=== PATIENT | female | born 1950 | race Caucasian/White ===

== ENCOUNTER → 2019-04-13 | Outpatient (CLI) | payer MEDICARE, SELFPAY ==
--- NOTE | 2019-04-13 07:57 | CT_ITS ---
STUDY: LOW DOSE CT LUNG CANCER SCREENING REASON FOR EXAM: Female, 68 years old. Tobacco use, smokes 1 pack/day x 50 years, SOB on exertion, 225lbs, diabetes. RADIATION DOSAGE (If Supplied By Facility): CTDIvol = ( 3.40 ) mGy, DLP = ( 108.06 ) mGycm TECHNIQUE: No contrast was administered. Low dose technique was utilized (average mAS-38 and kVp 120). 1.25 mm axial source images with a slice interval of 1.25-mm were reconstructed in lung windows. 2.5 mm axial source images with a slice interval of 2.5-mm were reconstructed in lung windows. 5.0 mm axial source images with a slice interval of 5.0-mm were reconstructed in soft tissue windows. Nodule measured using lung windows on PACS and/or independent workstation with automated measurement of minimum and maximum diameter. Nodule measurement reported as average diameter rounded to the nearest whole number. Growth is defined as an increase ins size of greater than 1.5 mm. COMPARISON: None. NODULES: No suspicious nodule is seen. Emphysema: Mild emphysematous changes. Aorta: Mild atherosclerotic calcific plaques. Coronary arteries: Coronary artery calcification. Other chest and abdominal findings: Degenerative changes of the thoracic vertebrae. CT/Low Dose CT Lung Screening IMPRESSION: Lung-RADS category 2 - Continue annual screening with LDCT in 12 months. IMPORTANT NOTES FOR USE: ACR Lung-RADS Version 1.0 Assessment Categories Release Date: June 27, 2013 Category: Coded 0-4 bases on nodule(s) with highest degree of suspicion. Negative screen is defined as categories 1 and 2; a positive screen is defined as categories 3 and 4. Category 3 and 4A nodules that are unchanged on interval CT should be coded as category 2, and individuals returned to screening in 12 months. Category 4X: Category 3 or 4 nodules with additional imaging findings that increase the suspicion of lung cancer, such as spiculation, GGN that doubles in size in 1 year, enlarged lymph notes, etc. Category Modifiers: S (significant finding unrelated to lung cancer) and C (prior history of treated lung cancer) may be added to the 0-4 Lung-RADS Electronically Signed: Jose Brewer, at 11:05 EST , Service support ,
--- NOTE | 2019-04-13 08:16 | BD_ITS ---
STUDY: DUAL ENERGY X-RAY ABSORPTIOMETRY / DXA REASON FOR EXAM: Female, 68 years old. 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 COMPARISON: None. FINDINGS: Lumbar Spine (L1-L4): g/cm2 (0.934) / T-score (-2.2) / Z-score (-0.6) Findings are suggestive of osteopenia with a high fracture risk. Left Femur Total: g/cm2 (0.771) / T-score (-1.9) / Z-score (-0.5) Left Femoral Neck: g/cm2 (0.723) / T-score (-2.3) / Z-score (-0.6) Right Femur Total: g/cm2 (0.810) / T-score (-1.6) / Z-score (-0.2) Right Femoral Neck: g/cm2 (0.736) / T-score (-2.2) / Z-score (-0.5) BD/Dexa Bone Density Study IMPRESSION: The patient is considered osteopenic as outlined below according to World [place] Organization (WHO) criteria with a high fracture risk. Reference Information: The T-score is the number of standard deviations above or below the standard which is normal for young adults at their peak bone mineral density. The World Health Organization (WHO) interprets the T-scores as follows: Above -1 Normal bone density Between -1 and -2.5 Osteopenia Equal to / or below -2.5 Osteoporosis As a practical clinical guideline, osteopenia may be graded as follows: Mild -1 through -1.5 Moderate -1.6 through -2.0 Severe -2.1 through -2.4 The Z-score is the number of standard deviations above or below age-matched controls. A Z-score of less than -1.5 would be considered abnormal. References: 1. NIH Osteoporosis and Related Bone Diseases http://www.osteo.org 2. International Society for Clinical Densitometry http://www.iscd.org 3. National Osteoporosis Foundation http://www.nof.org Electronically Signed: Jose Brewer, at 14:50 EST , Service support ,
== END | disposition home or self-care (01) ==
LOC: CT 06:53
PROVIDERS: PCP Family Medicine; Referring Provider Family Medicine; Visit Provider Family Medicine
DX: F17.200 Nicotine dependence, unspecified, uncomplicated (principal); Z12.2 Encounter for screening for malignant neoplasm of respiratory organs; Z78.0 Asymptomatic menopausal state
CPT/HCPCS: 77080; G0297

== ENCOUNTER → 2020-04-23 14:36 | Outpatient (CLI) | payer MEDICARE, SELFPAY ==
--- NOTE | 2020-04-23 14:38 | CT_ITS ---
STUDY: LOW DOSE CT LUNG CANCER SCREENING REASON FOR EXAM: Female, 69 years old. Lung cancer screening, smokes 1 pack/day x 49 years, emphysema, diabetes. Prior cysts removed from bilateral breasts. RADIATION DOSAGE (If Supplied By Facility): CTDIvol = ( 4.02 ) mGy, DLP = ( 127.37 ) mGycm TECHNIQUE: No contrast was administered. Low dose technique was utilized (average mAS-38 and kVp 120). 1.25 mm axial source images with a slice interval of 1.25-mm were reconstructed in lung windows. 2.5 mm axial source images with a slice interval of 2.5-mm were reconstructed in lung windows. 5.0 mm axial source images with a slice interval of 5.0-mm were reconstructed in soft tissue windows. Nodule measured using lung windows on PACS and/or independent workstation with automated measurement of minimum and maximum diameter. Nodule measurement reported as average diameter rounded to the nearest whole number. Growth is defined as an increase ins size of greater than 1.5 mm. COMPARISON: Comparison is made with prior examination dated 04/13/2019. NODULES: No suspicious nodules are seen. Emphysema: Mild emphysematous changes. Endobronchial lesion: None Aorta: Mild atherosclerotic plaques of the aortic arch. Coronary arteries: Coronary artery calcification. Heart: Unremarkable. Pulmonary artery: Unremarkable. Mediastinal nodes: Unremarkable. Other chest and abdominal findings: Mild degree of degenerative changes of the thoracic spine. CT/Low Dose CT Lung Screening IMPRESSION: Lung-RADS category 2 - Continue annual screening with LDCT in 12 months. IMPORTANT NOTES FOR USE: ACR Lung-RADS Version 1.0 Assessment Categories Release Date: June 27, 2013 Category: Coded 0-4 bases on nodule(s) with highest degree of suspicion. Negative screen is defined as categories 1 and 2; a positive screen is defined as categories 3 and 4. Category 3 and 4A nodules that are unchanged on interval CT should be coded as category 2, and individuals returned to screening in 12 months. Category 4X: Category 3 or 4 nodules with additional imaging findings that increase the suspicion of lung cancer, such as spiculation, GGN that doubles in size in 1 year, enlarged lymph notes, etc. Category Modifiers: S (significant finding unrelated to lung cancer) and C (prior history of treated lung cancer) may be added to the 0-4 Lung-RADS Electronically Signed: Jose Brewer MD at 15:08 EST , Service support ,
== END ==
PROVIDERS: PCP Family Medicine; Referring Provider Family Medicine; Visit Provider Family Medicine
DX: Z00.01 Encounter for general adult medical examination with abnormal findings (principal); F17.210 Nicotine dependence, cigarettes, uncomplicated; Z12.2 Encounter for screening for malignant neoplasm of respiratory organs
CPT/HCPCS: 71271

== ENCOUNTER 2021-05-01 08:54 | Outpatient (CLI) | payer MEDICARE, SELFPAY ==
--- NOTE | 2021-05-01 09:10 | CT_ITS ---
STUDY: LOW DOSE CT LUNG CANCER SCREENING REASON FOR EXAM: Female, 70 years old. SCREENING. Patient smoked 1 pack per day for 50 years. RADIATION DOSAGE (If Supplied By Facility): CTDIvol = ( 4.02 ) mGy, DLP = ( 122.85 ) mGycm TECHNIQUE: No contrast was administered. Low dose technique was utilized (average mAS-38 and kVp 120). 1.25 mm axial source images with a slice interval of 1.25-mm were reconstructed in lung windows. 2.5 mm axial source images with a slice interval of 2.5-mm were reconstructed in lung windows. 5.0 mm axial source images with a slice interval of 5.0-mm were reconstructed in soft tissue windows. Nodule measured using lung windows on PACS and/or independent workstation with automated measurement of minimum and maximum diameter. Nodule measurement reported as average diameter rounded to the nearest whole number. Growth is defined as an increase ins size of greater than 1.5 mm. COMPARISON: Comparison is made with prior study dated 04/23/2020. NODULES: No suspicious nodule is seen. Emphysema: Mild emphysematous changes. Endobronchial lesion: Aorta: Mild atherosclerotic plaque of the aortic arch. Coronary arteries: Coronary artery calcification. Heart: Unremarkable Pulmonary artery: Unremarkable Mediastinal nodes: Unremarkable Other chest and abdominal findings: Degenerative changes of the thoracic spine. CT/Low Dose CT Lung Screening IMPRESSION: Lung-RADS category 2 - Continue annual screening with LDCT in 12 months. IMPORTANT NOTES FOR USE: ACR Lung-RADS Version 1.1 Assessment Categories Release Date: 2018 Category: Coded 0-4 bases on nodule(s) with highest degree of suspicion. Negative screen is defined as categories 1 and 2; a positive screen is defined as categories 3 and 4. Category 3 and 4A nodules that are unchanged on interval CT should be coded as category 2, and individuals returned to screening in 12 months. Category 4X: Category 3 or 4 nodules with additional imaging findings that increase the suspicion of lung cancer, such as spiculation, GGN that doubles in size in 1 year, enlarged lymph notes, etc. Category Modifiers: S (significant finding unrelated to lung cancer) Electronically Signed: Jose Brewer MD at 12:22 EST ,
== END 2021-05-01 23:59 | disposition home or self-care (01) ==
PROVIDERS: PCP Family Medicine; Referring Provider Family Medicine; Visit Provider Family Medicine
DX: Z00.01 Encounter for general adult medical examination with abnormal findings (principal); Z12.2 Encounter for screening for malignant neoplasm of respiratory organs; Z87.891 Personal history of nicotine dependence
CPT/HCPCS: 71271

== ENCOUNTER → 2022-04-01 | Outpatient (CLI) | payer MEDICARE, SELFPAY ==
[2022-04-01 15:35] LABS: Absolute Lymphocyte Count 2.41 X10^3/uL (0.83-4.51); Absolute Neutrophil Count 4.9 X10^3/uL (2.0-7.7); Basophil# 0.08 X10^3/uL; Eosinophil# 0.29 X10^3/uL; Eosinophils% 3.5 % (0-5); Hematocrit 38.5 % (37-47); Hemoglobin 11.8 g/dL (12.0-15.0); Lymphocyte # 2.41 X10^3/ul (0.83-4.51); Lymphocyte % 28.7 % (19-41); Mean Corp Hgb Conc 30.6 g/dL (32-36); Mean Corpuscular Hgb 28.4 pg (27.0-32.0); Mean Corpuscular Volume 92.5 fL (81-99); Mean Platelet Vol. 9.7 fl (6.2-12.0); Monocyte% 8.3 % (0-10); NRBC Flagged by Analyzer 0 % (0-5); Neutrophil # 4.89 X10^3/uL (2.7-7.7); Neutrophil % 58.1 % (47-70); Platelet Count 389 K/mm3 (150-450); RBC Distribution Width CV 17.2 % (11.6-14.6); RBC Distribution Width SD 58.6 fl (35.1-43.9); Red Blood Count 4.16 M/mm3 (4.2-5.4); White Blood Count 8.4 K/mm3 (4.4-11.0)
[2022-04-01 16:55] LABS: ALB/GLOB Ratio 0.8 RATIO (0.9-2.4); AST(SGOT) 14 U/L (15-37); Alanine Aminotransfer ALT/SGPT 22 U/L (13-56); Albumin, Serum 3.3 g/dL (3.2-5.0); Alkaline Phosphatase 121 U/L (45-117); Anion Gap 12 (5-15); BUN 12 mg/dL (7-18); BUN/Creat Ratio 18.8 RATIO (10-20); Calcium,Total 9.1 mg/dL (8.5-10.1); Chloride 107 mmol/L (98-107); Creatinine, Serum 0.64 mg/dL (0.55-1.02); EST Glomerular Filtration Rate 97 mL/min (>60); Est Glom Filt Rate - Afr Amer 117 mL/min (>60); Ferritin 7 ng/mL (8-252); Globulin 3.9 g/dL (2.2-4.2); Glucose 141 mg/dL (74-106); Iron 40 ug/dL (50-170); Iron Binding Capacity,Total 380 ug/dL (250-450); PERCENT IRON SATURATION 10.5 % (15.0-55.0); Potassium 4.4 mmol/L (3.5-5.1); Protein, Total 7.2 g/dL (6.4-8.2); Sodium Level 142 mmol/L (136-145); Thyroid Stim Hormone (TSH) 1.58 uIU/mL (0.358-3.74)
[2022-04-01 17:00] LABS: Vitamin B12 458 pg/mL (211-911); Vitamin D,25 Hydroxy 67.4 ng/mL
== END | disposition home or self-care (01) ==
LOC: BFHLAB 11:22
PROVIDERS: PCP Family Medicine; Visit Provider Family Medicine
DX: E11.9 Type 2 diabetes mellitus without complications (principal); I63.9 Cerebral infarction, unspecified; D64.9 Anemia, unspecified; E78.5 Hyperlipidemia, unspecified; R23.2 Flushing; E55.9 Vitamin D deficiency, unspecified
CPT/HCPCS: 36415; 80053; 82306; 82607; 82627; 82728; 82746; 83540; 83550; 84443; 85025; 82626

== ENCOUNTER → 2022-04-25 | Outpatient (CLI) | payer MEDICARE, SELFPAY ==
[2022-04-25 15:16] LABS: Erythrocyte Sedimentation Rate 16 mm/hr (0-30)
[2022-04-25 15:18] LABS: Absolute Lymphocyte Count 2.42 X10^3/uL (0.83-4.51); Absolute Neutrophil Count 5.8 X10^3/uL (2.0-7.7); Basophil% 1.1 % (0-1); Eosinophil# 0.18 X10^3/uL; Hematocrit 43.1 % (37-47); Hemoglobin 13.1 g/dL (12.0-15.0); Lymphocyte # 2.42 X10^3/ul (0.83-4.51); Lymphocyte % 26.6 % (19-41); Mean Corp Hgb Conc 30.4 g/dL (32-36); Mean Corpuscular Hgb 28.2 pg (27.0-32.0); Mean Corpuscular Volume 92.9 fL (81-99); Mean Platelet Vol. 9.6 fl (6.2-12.0); Monocyte# 0.56 X10^3/uL; Monocyte% 6.2 % (0-10); NRBC Flagged by Analyzer 0 % (0-5); Neutrophil % 63.8 % (47-70); Platelet Count 422 K/mm3 (150-450); RBC Distribution Width CV 15.9 % (11.6-14.6); RBC Distribution Width SD 53.5 fl (35.1-43.9); Red Blood Count 4.64 M/mm3 (4.2-5.4); White Blood Count 9.1 K/mm3 (4.4-11.0)
[2022-04-25 15:36] LABS: ALB/GLOB Ratio 0.9 RATIO (0.9-2.4); AST(SGOT) 9 U/L (15-37); Alanine Aminotransfer ALT/SGPT 18 U/L (13-56); Albumin, Serum 3.6 g/dL (3.2-5.0); Alkaline Phosphatase 104 U/L (45-117); Anion Gap 8 (5-15); BUN 13 mg/dL (7-18); CRP < 2.90 mg/L (0.0-3.0); Calcium,Total 9.7 mg/dL (8.5-10.1); Chloride 107 mmol/L (98-107); Creatinine, Serum 0.69 mg/dL (0.55-1.02); EST Glomerular Filtration Rate 90 mL/min (>60); Est Glom Filt Rate - Afr Amer 108 mL/min (>60); Ferritin 7 ng/mL (8-252); Globulin 4.1 g/dL (2.2-4.2); Glucose 141 mg/dL (74-106); Iron Binding Capacity,Total 432 ug/dL (250-450); LDH 135 U/L (84-246); Potassium 4.1 mmol/L (3.5-5.1); Protein, Total 7.7 g/dL (6.4-8.2); Sodium Level 142 mmol/L (136-145)
[2022-04-28 13:07] LABS: Anti-Centromere B Ab <0.2 AI (0.0-0.9); Anti-Chromatin <0.2 AI (0.0-0.9); Anti-Jo <0.2 AI (0.0-0.9); Anti-Scleroderma-70 AB <0.2 AI (0.0-0.9); RNP Ab <0.2 AI (0.0-0.9); SJOGREN'S Anti-SS-A test < 0.2 AI (0.0-0.9); SJOGREN'S Anti-SS-B test < 0.2 AI (0.0-0.9); Smith Ab <0.2 AI (0.0-0.9)
[2022-04-28 13:18] LABS: Anti-dsDNA Ab 2 IU/mL (0-9)
[2022-04-28 16:08] LABS: Endomysial Antibody IgA Negative (Negative)
[2022-04-28 21:03] LABS: Immunoglobulin A 377 mg/dL (64-422); t-Transglutaminase IgA <2 U/mL (0-3)
[2022-05-02 00:06] LABS: Albumin 3.5 g/dL (2.9-4.4); Alpha-1-Globulins 0.3 g/dL (0.0-0.4); Gamma Globulin 0.7 g/dL (0.4-1.8); Immunoglobulin A 366 mg/dL (64-422); Immunoglobulin E 371 IU/mL (6-495); Immunoglobulin G 841 mg/dL (586-1602); Immunoglobulin M 29 mg/dL (26-217); PROEL- TOTAL PROTEIN 6.7 g/dL (6.0-8.5)
[2022-05-02 08:28] LABS: Perinuclear Ab (P-ANCA) <1:20 titer (Neg:<1:20)
== END | disposition home or self-care (01) ==
PROVIDERS: PCP Family Medicine; Referring Provider Nurse Practitioner Adult Health; Visit Provider Nurse Practitioner Adult Health
DX: K52.9 Noninfective gastroenteritis and colitis, unspecified (principal); D50.9 Iron deficiency anemia, unspecified
CPT/HCPCS: 36415; 80053; 82728; 82784; 82785; 83516; 83550; 83615; 84165; 85025; 85652; 86140; 86225; 86235; 86255; 86256; 86334

== ENCOUNTER → 2022-04-28 | Outpatient (CLI) | payer MEDICARE, SELFPAY ==
[2022-05-02 17:28] LABS: Pancreatic Elastase, Fecal 108 (>200)
[2022-05-03 10:59] LABS: Calprotectin, Stool 19 ug/g (0-120)
== END | disposition home or self-care (01) ==
LOC: LABSPEC 11:04
PROVIDERS: PCP Family Medicine; Referring Provider Nurse Practitioner Adult Health; Visit Provider Nurse Practitioner Adult Health
DX: K52.9 Noninfective gastroenteritis and colitis, unspecified (principal); D84.9 Immunodeficiency, unspecified; D50.9 Iron deficiency anemia, unspecified; K58.9 Irritable bowel syndrome, unspecified
CPT/HCPCS: 82653; 83630; 83993; 87493; 87506

== ENCOUNTER → 2022-05-16 | Outpatient (CLI) | payer MEDICARE, SELFPAY ==
--- NOTE | 2022-05-16 11:15 | CT_ITS ---
ACR Level 3 findings have been noted. An addendum which confirms receipt of the report will follow. STUDY: CT ABDOMEN AND PELVIS WITH CONTRAST REASON FOR EXAM: Female, 71 years old. Chronic diarrhea, FELI -- oral and iv RADIATION DOSAGE (If Supplied By Facility): CTDIvol = ( 18.37 ) mGy, DLP = ( 1161.16 ) mGycm TECHNIQUE: Transaxial images were obtained from the dome of the diaphragm to the symphysis pubis with oral contrast. Oral and amp; IV Gastrografin and amp; 100mL Isovue-300 was administered. Sagittal and coronal images were reconstructed. Individualized dose optimization techniques were used for this CT. COMPARISON: Limited comparison May 01, 2021 CT scan chest FINDINGS: The visualized lung bases are unremarkable. No visualize coronary calcifications. Normal liver. Normal gallbladder and extrahepatic biliary system. Normal spleen. Normal pancreas. Normal bilateral adrenal glands. Normal right kidney. Normal left kidney. There is a small hiatal hernia. There is a mildly thick-walled appearance of the duodenum. There is a distended appearance of the stomach with contrast and gastric fluid. There are contrast filled mildly distended loops of small bowel. There is contrast within the colon with air-fluid levels. There is diverticulosis of the colon. Within the descending colon over a segment of proximally 5 cm cm is visualized mild wall thickening and several prominent haustral markings which contain stool. One contains what appears to be residual contrast. There is no significant surrounding inflammatory change. The appendix is visualized and appears normal. There is partial calcification of the aorta. Normal inferior vena cava. Normal retroperitoneum. Normal urinary bladder. There is atrophy of the uterus. Normal abdominal wall. There is multilevel degenerative change. At L2-L3 there is disc space narrowing. There is a partially sclerotic degenerative appearance of the level of L3. At L3-L4 there is a right lateral disc osteophyte moderate neural foramina narrowing minimal central stenosis. At L4-L5 there is vacuum phenomenon and disc space narrowing and moderate neural foraminal narrowing minimal central stenosis. At L5-S1 there is minimal broad disc bulge. CT/Abdomen/Pelvis WITH Contrast IMPRESSION: Mostly fluid-filled, contrast-filled appearance of the colon with the exception of the distal descending colon sigmoid and rectum which contain moderate stool. There is a segment of approximate 5 cm of mild wall thickening of the proximal sigmoid colon which may represent a focus of atypia or possible mild colitis. This is associated with enlarged posterolateral markings. Recommend correlation with clinical symptoms and consideration for follow-up colonoscopy. There is a mildly thick-walled appearance of the duodenum on this study which could potentially represent mild duodenitis. Minimal hiatal hernia. Electronically Signed: Beatris Currie MD at 16:13 EDT ,
--- NOTE | 2022-05-16 11:16 | CT_ITS ---
STUDY: LOW DOSE CT LUNG CANCER SCREENING REASON FOR EXAM: Female, 71 years old. Long-term smoking history RADIATION DOSAGE (If Supplied By Facility): CTDIvol = ( 3.02 ) mGy, DLP = ( 101.18 ) mGycm TECHNIQUE: No contrast was administered. Low dose technique was utilized (average mAS-38 and kVp 120). 1.25 mm axial source images with a slice interval of 1.25-mm were reconstructed in lung windows. 2.5 mm axial source images with a slice interval of 2.5-mm were reconstructed in lung windows. 5.0 mm axial source images with a slice interval of 5.0-mm were reconstructed in soft tissue windows. COMPARISON: 05/01/2021 FINDINGS: Lung windows show underlying emphysema with chronic interstitial changes in both lung denton. There is evidence of chronic bronchitis. There is no organized infiltrate, effusion, or suspicious noncalcified mass or nodule Thyroid gland is unremarkable. No suspicious adenopathy. There are calcified coronary vessels. Bony structures show degenerative change. Limited cuts of the upper abdomen do not show suspicious abnormality. CT/Low Dose CT Lung Screening IMPRESSION: Lung-RADS category 2 - Continue annual screening with LDCT in 12 months. IMPORTANT NOTES FOR USE: ACR Lung-RADS Version 1.1 Assessment Categories Release Date: 2018 Category: Coded 0-4 bases on nodule(s) with highest degree of suspicion. Negative screen is defined as categories 1 and 2; a positive screen is defined as categories 3 and 4. Category 3 and 4A nodules that are unchanged on interval CT should be coded as category 2, and individuals returned to screening in 12 months. Category 4X: Category 3 or 4 nodules with additional imaging findings that increase the suspicion of lung cancer, such as spiculation, GGN that doubles in size in 1 year, enlarged lymph notes, etc. Category Modifiers: S (significant finding unrelated to lung cancer) Electronically Signed: Jovanny Blank MD at 14:17 EDT ,
== END | disposition home or self-care (01) ==
LOC: CT 11:07
PROVIDERS: PCP Family Medicine; Referring Provider Family Medicine; Visit Provider Family Medicine
DX: Z87.891 Personal history of nicotine dependence (principal); K52.9 Noninfective gastroenteritis and colitis, unspecified; D50.9 Iron deficiency anemia, unspecified
CPT/HCPCS: 71271; 74177; Q9967; A4216

== ENCOUNTER 2022-06-18 10:37 | Day surgery (SDC) | payer MEDICARE, SELFPAY ==
[2022-06-18] VITALS (7 sets, daily range): BP systolic 83–115; BP diastolic 54–69; PULSE 77–92; RESP 16–20; TEMP 36.4–36.9; O2SAT 91–99; BMI 36.8
--- NOTE | 2022-06-18 11:00 | HP.PCM_ITS ---
History and Physical Date of Admission: 06/18/22 71 F who presents to the office today to establish with GI for anemia and diarrhea Diagnosed with iron deficiency anemia in 2021. Hgb was 9.8 in 08/2021. Anemia improved with oral iron supplement however ferritin remains low, therefore she was referred to evaluate for GI bleed. Hgb 11.3 in 11/2021. Ferritin 7 and iron 31 in 08/2021. She is on aspirin and clopidogrel for hx CVA. She has urgent diarrhea postprandially, can be watery or loose or soft. Has a bad odor. Lots of gas. She can stop the diarrhea by eating cheese, then no BM for 3 days, then takes stool softener and has formed stool once, then back to having diarrhea. The diarrhea began maybe 2 yrs ago. She was already on met formin x yrs at that point. Avoids milk and ice cream since they will cause diarrhea. She does have nocturnal diarrhea. Estimates 6 bouts of diarrhea per day. Only one accident, waited too long to get to bathroom. Gets rectal pressure before BM. No tenesmus. No abdominal pain, no cramps or spasms. No melena or hematochezia. No nausea or vomiting. No early satiety. No heartburn or acid reflux. Occas feels like food sticks in her esophagus. She has diabetes, most recent hgb a1c was 6.9 in 11/2021. 04/2020 EGD and colonoscopy by general surgeon Dr Lee, diverticula. Pt reports remote hx of diverticulitis. Father of colon cancer age 72 ROS Const Constitutional: No fatigue ENT ENT: No difficulty swallowing Gastro GI: Positive for abdominal pain and diarrhea; No belching, bloating, change in bowel habits, change in stool character, coffee ground emesis, constipation, cramping, heartburn, difficulty swallowing, feeling full early, excessive flatus, incontinent of stools, Vomiting blood/hematemesis, Blood in stool, loose stools, Black,tarry stools, nausea/dyspepsia, pain with swallowing, vomiting or other Musc Musculoskeletal: No joint pain Skin Skin: No yellowing of the eye or itchy eyes Psych Psychiatric: No anxiety and No depression Endo Endocrine: No fatigue Aller/Imm Allergy/Immunologic: No itchy eyes Tom/Lymp Hematologic/Lymphatic: No easy bleeding or easy bruising Exam Const General: cooperative and comfortable Nutritional Appearance: obese Orientation: alert, awake and oriented x3 HENMT Head: normal to inspection Eyes Sclera: sclerae normal Resp Effort & Inspection: normal respiratory effort GI Inspection: obesity Palpation: soft, no hepatosplenomegaly, no masses and nontender Neuro Gait: normal gait Psych Mood: euthymic mood Quality Reporting Tobacco Screening ([facility] 138) Smoking Status: Never smoker Assessment and Plan Assessment and Plan (1) Chronic diarrhea: ?Status:?Chronic ?Plan: 71 yr old female with iron deficiency anemia and chronic diarrhea DDx for diarrhea includes microscopic colitis, bile acid diarrhea, IBD, infection Blood and stool tests, will call her with results and recommendations Will decide re CT after we get some results in case we need CTE EGD, colonoscopy and capsule endoscopy, w/ office f/u 2 wks later (2) Iron deficiency anemia: ?Status:?Chronic ?Plan: as above ? ? ? Orders: Orders Comprehensive Metabolic Profil Today D50.9 - Iron deficiency anemia, unspecified, K52.9 - Noninfective gastroenteritis and colitis, unspecified ? CRP Today D50.9 - Iron deficiency anemia, unspecified, K52.9 - Noninfective gastroenteritis and colitis, unspecified ? Ferritin Today D50.9 - Iron deficiency anemia, unspecified, K52.9 - Noninfective gastroenteritis and colitis, unspecified ? LDH Today D50.9 - Iron deficiency anemia, unspecified, K52.9 - Noninfective gastroenteritis and colitis, unspecified ? Iron Binding Capacity,Total Today D50.9 - Iron deficiency anemia, unspecified, K52.9 - Noninfective gastroenteritis and colitis, unspecified ? CBC W/Diff, Automated Today D50.9 - Iron deficiency anemia, unspecified, K52.9 - Noninfective gastroenteritis and colitis, unspecified ? Erythrocyte Sed Rate Today D50.9 - Iron deficiency anemia, unspecified, K52.9 - Noninfective gastroenteritis and colitis, unspecified ? BRITTNI Comprehensive Panel Today D50.9 - Iron deficiency anemia, unspecified, K52.9 - Noninfective gastroenteritis and colitis, unspecified ? Calprotectin, Stool Today D50.9 - Iron deficiency anemia, unspecified, K52.9 - Noninfective gastroenteritis and colitis, unspecified ? CDIFF (PCR) Today D50.9 - Iron deficiency anemia, unspecified, K52.9 - Noninfective gastroenteritis and colitis, unspecified ? ENTERIC PATHOGEN PANEL STOOL Today D50.9 - Iron deficiency anemia, unspecified, D84.9 - Immunodeficiency, unspecified, K52.9 - Noninfective gastroenteritis and colitis, unspecified, K58.9 - Irritable bowel syndrome without diarrhea ? Stool Lactoferrin/WBC Today D50.9 - Iron deficiency anemia, unspecified, K52.9 - Noninfective gastroenteritis and colitis, unspecified ? ANCA Today D50.9 - Iron deficiency anemia, unspecified, K52.9 - Noninfective gastroenteritis and colitis, unspecified ? Celiac Disease Profile Today D50.9 - Iron deficiency anemia, unspecified, K52.9 - Noninfective gastroenteritis and colitis, unspecified ? Immunoglobulins G/A/M/E Today D50.9 - Iron deficiency anemia, unspecified, K52.9 - Noninfective gastroenteritis and colitis, unspecified ? MUNA + Protein Elect, Serum Today D50.9 - Iron deficiency anemia, unspecified, K52.9 - Noninfective gastroenteritis and colitis, unspecified ? Miscellaneous Lab Procedure Today D50.9 - Iron deficiency anemia, unspecified, K52.9 - Noninfective gastroenteritis and colitis, unspecified ? Pancreatic Elastase, Fecal Today K52.9 - Noninfective gastroenteritis and colitis, unspecified ? I have examined the patient and the H&P has been reviewed. There are no clinical changes since date of exam.
[2022-06-18] MEDS: Lactated Ringers 1,000 ML 15 ML IV (11:17)
--- NOTE | 2022-06-18 11:45 | COLBX_PTH ---
PATIENT: LAUREN DE LA CRUZ LOC: EN U#:[id number] AGE/SX: 71/F ROOM: RE06/18/[address]: Dr. Fabien Valentin DO : 1950 BED: DIS: 06/18/2022 SPEC #: [id number] RECD: 06/18/22 12:55 STATUS: KAILEY SANDRA #: [id number] LEFTY: 06/18/22 11:[address]: Fabien Valentin DEPT: SURGICAL PATHOLOGY RECD BY: Dov Blunt ENTERED: 06/18/22 13:42 SP TYPE: COLON BX OTHR DR: Dr. Sonia Álvarez MD Tissues: A - Duodenum, NOS B - COLON BIOPSY Procedures: Surgery Specimen Level IV HEADER OPERATION: Colonoscopy, EGD ([facility] [place] with biopsy PRE-OP DIAGNOSIS: Chronic diarrhea, iron deficiency anemia TISSUE SUBMITTED: A ? Duodenum biopsy, B ? Random colon biopsy MICROSCOPIC DIAGNOSIS A. Duodenum, biopsy: No pathologic change. B. Colon, random biopsy: Minimal glandular architectural change. No evidence of colitis. AM:miguel 06/19/2022 MICROSCOPIC DESCRIPTION Slides are reviewed. GROSS DESCRIPTION A - Received in fixative is one container labeled with the patient's name and designated duodenum. The specimen consists of one irregular fragment of light porter soft tissue that measures 0.3 x 0.3 x 0.1 cm. The specimen is totally submitted in one cassette. B - Received in fixative is one container labeled with the patient's name and designated random colon biopsy. The specimen consists of multiple irregular fragments of light porter soft tissue that in aggregate measure 1.5 x 0.5 x 0.1 cm. The specimen is totally submitted in one cassette. / SJ:miguel 06/18/2022 TC:5 [facility]: [id number] x2
[2022-06-18 12:10] LABS: Bedside Glucose 128 mg/dL (74-106)
--- NOTE | 2022-06-18 12:30 | OP.EGD_ITS ---
Patient Name: Ayla Abreu Procedure Date: 06/18/2022 11:51 AM Date of : 1950 Age: 71 Procedure: Upper GI endoscopy Indications: Epigastric abdominal pain, Iron deficiency anemia Providers: Fabien Valentin DO Referring MD: Fabien Valentin DO Medicines: Monitored Anesthesia Care Patient Profile: This is a 71 year old female. Refer to note in patient chart for documentation of history and physical. Patient has symptoms of chronic epigastric abdominal pain and chronic dyspepsia. Complications: No immediate complications. Procedure: Pre-Anesthesia Assessment: - Prior to the procedure, a History and Physical was performed, and patient medications and allergies were reviewed. The risks and benefits of the procedure and the sedation options and risks were discussed with the patient. All questions were answered and informed consent was obtained. Patient identification and proposed procedure were verified by the physician in the pre-procedure area. Mental Status Examination: alert and oriented. Airway Examination: normal oropharyngeal airway and neck mobility. Prophylactic Antibiotics: The patient does not require prophylactic antibiotics. Prior Anticoagulants: The patient has taken no previous anticoagulant or antiplatelet agents. After reviewing the risks and benefits, the patient was deemed in satisfactory condition to undergo the procedure. The anesthesia plan was to use monitored anesthesia care (MAC). Immediately prior to administration of medications, the patient was re-assessed for adequacy to receive sedatives. The heart rate, respiratory rate, oxygen saturations, blood pressure, adequacy of pulmonary ventilation, and response to care were monitored throughout the procedure. The physical status of the patient was re-assessed after the procedure. After obtaining informed consent, the endoscope was passed under direct vision. Throughout the procedure, the patient's blood pressure, pulse, and oxygen saturations were monitored continuously. The Colonoscope was introduced through the mouth, and advanced to the second part of duodenum. The upper GI endoscopy was accomplished without difficulty. The patient tolerated the procedure well. Scope In: 12:04:51 PM Scope Out: 12:08:15 PM Total Procedure Duration Time 0 hours 3 minutes 24 seconds Findings: No gross lesions were noted in the entire esophagus. A small hiatal hernia was present. The exam of the stomach was otherwise normal. Patchy moderately erythematous mucosa without active bleeding and with no stigmata of bleeding was found in the duodenal bulb. Biopsies were taken with a cold forceps for histology. Verification of patient identification for the specimen was done. Estimated blood loss was minimal. A single 5 mm bleeding angiodysplastic lesion was found on the greater curvature of the stomach. Coagulation for hemostasis using heater probe was successful. Estimated blood loss was minimal. Impression: - No gross lesions in esophagus. - Small hiatal hernia. - Erythematous duodenopathy. Biopsied. 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 Treated with a heater probe. Recommendation: - Discharge patient to home. - Resume previous diet. - Continue present medications. - Await pathology results. Procedure Code(s): --- Professional --- 69247, 59, Esophagogastroduodenoscopy, flexible, transoral; with control of bleeding, any method 91261, Esophagogastroduodenoscopy, flexible, transoral; with biopsy, single or multiple CPT copyright 2017 [employer] [place] [employer]. All rights reserved. The codes documented in this report are preliminary and upon aircraft instrument engineer review may be revised to meet current compliance requirements. Fabien Valentin DO 06/18/2022 12:30:24 PM This report has been signed electronically. Number of Addenda: 0 Note Initiated On: 06/18/2022 11:51 AM
--- NOTE | 2022-06-18 12:31 | OP.CCLET_ITS ---
06/18/2022 Sonia Álvarez [place] [id number] [facility] [address] Re : Upper GI endoscopy procedure for Ayla Abreu Dear Dr. Álvarez This procedure was performed on Saturday, June 18, 2022. My impressions and recommendations are as follows: Impressions : - No gross lesions in esophagus. - Small hiatal hernia. - Erythematous duodenopathy. Biopsied. 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 Treated with a heater probe. Recommendations : - Discharge patient to home. - Resume previous diet. - Continue present medications. - Await pathology results. My findings are described in the full procedure note, which is enclosed. If I can be of further assistance, please feel free to contact me at . Sincerely, Fabien Valentin, 06/18/2022 12:30:24 PM This report has been signed electronically.
--- NOTE | 2022-06-18 12:37 | OP.COLON_ITS ---
Patient Name: Ayla Abreu Procedure Date: 06/18/2022 12:08 PM Date of : 1950 Age: 71 Procedure: Colonoscopy Indications: Chronic diarrhea, Iron deficiency anemia Providers: Fabien Valentin DO Referring MD: Fabien Valentin DO Medicines: Monitored Anesthesia Care Patient Profile: This is a 71 year old female. Refer to note in patient chart for documentation of history and physical. Patient has symptoms of chronic epigastric abdominal pain and chronic dyspepsia. Last Colonoscopy: date unknown. Unable to locate last colonoscopy report. Complications: No immediate complications. Procedure: Pre-Anesthesia Assessment: - Prior to the procedure, a History and Physical was performed, and patient medications and allergies were reviewed. The risks and benefits of the procedure and the sedation options and risks were discussed with the patient. All questions were answered and informed consent was obtained. Patient identification and proposed procedure were verified by the physician in the pre-procedure area. Mental Status Examination: alert and oriented. Airway Examination: normal oropharyngeal airway and neck mobility. Prophylactic Antibiotics: The patient does not require prophylactic antibiotics. Prior Anticoagulants: The patient has taken no previous anticoagulant or antiplatelet agents. After reviewing the risks and benefits, the patient was deemed in satisfactory condition to undergo the procedure. The anesthesia plan was to use monitored anesthesia care (MAC). Immediately prior to administration of medications, the patient was re-assessed for adequacy to receive sedatives. The heart rate, respiratory rate, oxygen saturations, blood pressure, adequacy of pulmonary ventilation, and response to care were monitored throughout the procedure. The physical status of the patient was re-assessed after the procedure. After I obtained informed consent, the scope was passed under direct vision. Throughout the procedure, the patient's blood pressure, pulse, and oxygen saturations were monitored continuously. The Colonoscope was introduced through the anus and advanced to the cecum, identified by appendiceal orifice and ileocecal valve. The colonoscopy was performed without difficulty. The patient tolerated the procedure well. The quality of the bowel preparation was adequate. Scope In: 12:11:08 PM Scope Withdrawal Time 0 hours 8 minutes 48 seconds Scope Out: 12:24:17 PM Total Procedure Duration Time 0 hours 13 minutes 9 seconds Findings: The perianal and digital rectal examinations were normal. A single medium-sized localized angiodysplastic lesion with bleeding was found in the cecum. Scattered small and large-mouthed diverticula were found in the recto-sigmoid colon, sigmoid colon, descending colon, splenic flexure and transverse colon. An area of mildly congested mucosa was found in the sigmoid colon, in the transverse colon and in the ascending colon. Biopsies for histology were taken with a cold forceps from the ascending colon, right colon, left colon, transverse colon, right transverse colon, left transverse colon, descending colon, sigmoid colon and rectosigmoid colon for evaluation of microscopic colitis. Impression: - A single bleeding colonic angiodysplastic lesion. - Diverticulosis in the recto-sigmoid colon, in the sigmoid colon, in the descending colon, at the splenic flexure and in the transverse colon. - Congested mucosa in the sigmoid colon, in the transverse colon and in the ascending colon. Biopsied. - Poor rectal tone leading to grade 1 to 2 rectal prolapse therefore retroflexion was not performed in the rectum. Recommendation: - Discharge patient to home. - Resume previous diet. - Continue present medications. - Await pathology results. - Repeat colonoscopy in 5 years for surveillance. Procedure Code(s): --- Professional --- 40600, Colonoscopy, flexible; with biopsy, single or multiple CPT copyright 2017 [employer]. All rights reserved. The codes documented in this report are preliminary and upon sandblasting supervisor review may be revised to meet current compliance requirements. Fabien Valentin DO 06/18/2022 12:36:40 PM This report has been signed electronically. Number of Addenda: 0 Note Initiated On: 06/18/2022 12:08 PM
--- NOTE | 2022-06-18 12:38 | OP.CCLET_ITS ---
06/18/2022 Sonia Álvarez [place] [id number] [address] Re : Colonoscopy procedure for Ayla Abreu Dear Dr. Álvarez This procedure was performed on Saturday, June 18, 2022. My impressions and recommendations are as follows: Impressions : - A single bleeding colonic angiodysplastic lesion. - Diverticulosis in the recto-sigmoid colon, in the sigmoid colon, in the descending colon, at the splenic flexure and in the transverse colon. - Congested mucosa in the sigmoid colon, in the transverse colon and in the ascending colon. Biopsied. - Poor rectal tone leading to grade 1 to 2 rectal prolapse therefore retroflexion was not performed in the rectum. Recommendations : - Discharge patient to home. - Resume previous diet. - Continue present medications. - Await pathology results. - Repeat colonoscopy in 5 years for surveillance. My findings are described in the full procedure note, which is enclosed. If I can be of further assistance, please feel free to contact me at . Sincerely, Fabien Valentin, 06/18/2022 12:36:40 PM This report has been signed electronically.
== END 2022-06-18 13:56 | disposition home or self-care (01) ==
LOC: EN 10:38 → AC 10:42
PROVIDERS: PCP Family Medicine; Referring Provider Family Medicine; Visit Provider Internal Medicine Gastroenterology
PROC: 0DJD8ZZ Inspection of Lower Intestinal Tract, Via Natural or Artificial Opening Endoscopic (ICD-10-PCS; CPT 45378; principal; 2022-06-18 11:40)
DX: K44.9 Diaphragmatic hernia without obstruction or gangrene (principal); E11.9 Type 2 diabetes mellitus without complications; D50.9 Iron deficiency anemia, unspecified; K57.30 Diverticulosis of large intestine without perforation or abscess without bleeding; K62.3 Rectal prolapse; K31.9 Disease of stomach and duodenum, unspecified; I10 Essential (primary) hypertension; Z79.899 Other long term (current) drug therapy; F17.200 Nicotine dependence, unspecified, uncomplicated; E78.00 Pure hypercholesterolemia, unspecified; Z86.73 Personal history of transient ischemic attack (TIA), and cerebral infarction without residual deficits
CPT/HCPCS: 43239; 45380; 43255; 82962; 88305; J7120; J2405

== ENCOUNTER → 2022-07-22 | Outpatient (CLI) | payer MEDICARE, SELFPAY ==
[2022-07-22 14:38] LABS: Absolute Lymphocyte Count 3.02 X10^3/uL (0.83-4.51); Absolute Neutrophil Count 5.9 X10^3/uL (2.0-7.7); Basophil# 0.08 X10^3/uL; Basophil% 0.8 % (0-1); Eosinophil# 0.19 X10^3/uL; Eosinophils% 1.9 % (0-5); Hematocrit 42.4 % (37-47); Hemoglobin 13.1 g/dL (12.0-15.0); Lymphocyte # 3.02 X10^3/ul (0.83-4.51); Lymphocyte % 30.4 % (19-41); Mean Corp Hgb Conc 30.9 g/dL (32-36); Mean Corpuscular Hgb 28.9 pg (27.0-32.0); Mean Corpuscular Volume 93.6 fL (81-99); Mean Platelet Vol. 9.6 fl (6.2-12.0); Monocyte# 0.74 X10^3/uL; Monocyte% 7.5 % (0-10); NRBC Flagged by Analyzer 0 % (0-5); Neutrophil # 5.87 X10^3/uL (2.7-7.7); Neutrophil % 59.1 % (47-70); Platelet Count 391 K/mm3 (150-450); RBC Distribution Width CV 15.7 % (11.6-14.6); RBC Distribution Width SD 53.8 fl (35.1-43.9); Red Blood Count 4.53 M/mm3 (4.2-5.4); White Blood Count 9.9 K/mm3 (4.4-11.0)
[2022-07-22 15:45] LABS: Ferritin 14 ng/mL (8-252); Iron 94 ug/dL (50-170); Iron Binding Capacity,Total 433 ug/dL (250-450); PERCENT IRON SATURATION 21.7 % (15.0-55.0)
== END | disposition home or self-care (01) ==
LOC: LAB 13:31
PROVIDERS: PCP Family Medicine; Referring Provider Nurse Practitioner Adult Health; Visit Provider Nurse Practitioner Adult Health
DX: K52.9 Noninfective gastroenteritis and colitis, unspecified (principal); D50.9 Iron deficiency anemia, unspecified
CPT/HCPCS: 36415; 82728; 83540; 83550; 85025; 86256

== ENCOUNTER → 2022-09-26 | Outpatient (CLI) | payer MEDICARE, SELFPAY ==
[2022-09-26 12:57] LABS: Cholesterol 140 mg/dL (200); High Density Lipoprotein 51 mg/dL; Triglycerides 270 mg/dL; Very Low Density Lipoprotein 54 mg/dL (5-40)
== END | disposition home or self-care (01) ==
PROVIDERS: PCP Family Medicine; Referring Provider Family Medicine; Visit Provider Family Medicine
DX: E78.5 Hyperlipidemia, unspecified (principal); E11.9 Type 2 diabetes mellitus without complications
CPT/HCPCS: 36415; 80061

== ENCOUNTER 2023-07-07 05:19 | Day surgery (SDC) | payer MEDICARE, SELFPAY ==
[2023-07-07] VITALS (7 sets, daily range): BP systolic 121–133; BP diastolic 55–93; PULSE 59–67; RESP 16–18; TEMP 36.4–37.4; O2SAT 97–100; BMI 38.5
--- NOTE | 2023-07-07 | ESO_PTH ---
PATIENT: LAUREN DE LA CRUZ LOC: EN U#:[id number] AGE/SX: 72/F ROOM: RE07/07/[address]: Dr. Fabien Valentin DO : 1950 BED: DIS: 07/07/2023 SPEC #: [id number] RECD: 07/07/23 10:51 STATUS: KAILEY SANDRA #: [id number] LEFTY: 07/07/23 00:[address]: Fabien Valentin DEPT: SURGICAL PATHOLOGY RECD BY: Manjeet Keita ENTERED: 07/07/23 10:51 SP TYPE: DULCE SALDANA DR: Dr. Sonia Álvarez MD Tissues: A - Esophagus, NOS B - Ileum, NOS C - Transverse colon Procedures: Special Stain Group II Surgery Specimen Level IV Alcian Blue/PAS (control) HEADER OPERATION: Colonoscopy, EGD biopsy PRE-OP DIAGNOSIS: Iron deficiency anemia, chronic diarrhea, exocrine pancreatic insufficiency TISSUE SUBMITTED: A- Distal esophagus biopsy, B- Terminal ileum biopsy, C- Transverse colon polyp biopsy MICROSCOPIC DIAGNOSIS A. Distal esophagus, biopsy: Fragments of gastroesophageal mucosa with chronic inflammation. Intestinal metaplasia (goblet cell metaplasia) not identified. See comment. B. Terminal ileum, biopsy: Fragments of small intestinal mucosa, no pathologic diagnosis. C. Transverse colon polyp, biopsy: Hyperplastic polyp. / 07/08/23 COMMENT A. Alcian blue/PAS stain with matched control is used in the evaluation of the specimen. MICROSCOPIC DESCRIPTION Slides are reviewed. GROSS DESCRIPTION A. Received in fixative is one container labeled with the patient's name and designated Distal esophagus biopsy. The specimen consists of two irregular fragments of light porter soft tissue that in aggregate measure 1.0 x 0.5 x 0.2 cm. The specimen is totally submitted in one cassette. B. Received in fixative is one container labeled with the patient's name and designated Terminal ileum biopsy. The specimen consists of two irregular fragments of light porter soft tissue that in aggregate measure 1.0 x 0.5 x 0.2 cm. The specimen is totally submitted in one cassette. C. Received in fixative is one container labeled with the patient's name and designated Transverse colon polyp biopsy. The specimen consists of one irregular fragment of light porter soft tissue that measures 0.5 x 0.5 x 0.2 cm. The specimen is totally submitted in one cassette. mr 07/07/23 TC:3 CPT:84951s3,96155
[2023-07-07] MEDS: Lactated Ringers 1,000 ML 15 ML IV (06:07)
--- NOTE | 2023-07-07 06:23 | PCM.HP.BLA ---
History and Physical Date of Admission: 07/07/23 LAUREN DE LA CRUZ, is a 72 F who presents to the office today for *BGI established 04.25.22 with history of iron deficiency anemia, improved with oral iron though ferritin remains low. Postprandial loose stools with urgency, foul smell and increased flatulence is an issue; cheese is helpful but constipated for 3 days. Typically avoids milk/ice cream. ? Biochemical 04.25.22 CBC, ESR, CMP, CRP LDH, ferritin, TIBC, GAME, BRITTNI comp, ANCA, MUNA, IBD without pertinent abnormality ? Ferritin L7 ? Stool calprotectin, elastase, C.difficile, EP, lactoferrin WNL? Elastase L108 CT abd/pel 05.16.22 small hiatal hernia; thick-walled appearance of duodenum; distended stomach and small bowel; colonic diverticulosis with mild wall thickening and haustral markings containing stool/residual contrast without surrounding inflammation; degenerative spine changes. ? EGD/colonoscopy 06.18.22 EGD small hiatal hernia; bleeding gastric AVM, heater probe; duodenitis. No path changes ? Colonoscopy bleeding AVM; diverticulosis; congested mucosa, minimal glandular architectural change ? Capsule endoscopy 06.18.22 small bowel AVM 46minutes; diffuse, mild erythema that progressed to moderate in severity noted distally OV 07.22.22 Start colestipol for bile induced diarrhea. ? Biochemical 07.22.22 CBC, ferritin, iron, TIBC, ANCA without pertinent abnormality Creon start 05.07.22. Contact 10.14.22 with concern that colestipol is causing vaginal rawness, discharge and itching; encouraged to see primary care/gynecology. Evaluated by PCP and will continue colestipol. OV 03.30.23 feels that her GI symptoms are improved. Loose stools continue but unsure frequency, maybe a week each month. ROS Const Constitutional: Positive for fatigue; No fever(s), frequent falls, headache(s) or weight change ENT ENT: No headache(s) or difficulty swallowing Cardio Cardiology: No leg pain with exertion Gastro GI: Positive for bloating, change in bowel habits and diarrhea; No abdominal pain, constipation, heartburn, difficulty swallowing, Vomiting blood/hematemesis, Blood in stool, nausea/dyspepsia or vomiting Musc Musculoskeletal: Positive for joint pain and Arthritis; No abnormal gait, back pain, joint swelling, muscle cramps, muscle weakness, numbness, stiffness, tingling, sciatica, leg pain at night or leg pain with exertion Skin Skin: No dry skin, lesions, itchy eyes or rash Neuro Neurology: No abnormal gait, dizziness, frequent falls, headache(s), numbness, tingling, tremor(s), Increased tone in limbs, paralysis or seizures Psych Psychiatric: No anxiety, No depression, No paranoia, No Behavioral Problems, No Compulsive Behavior, No hyperactivity, No inattentiveness, No obsessions/compulsions, No Temper Tantrums and No suicidal ideation Endo Endocrine: Positive for fatigue; No weight change Aller/Imm Allergy/Immunologic: No itchy eyes Tom/Lymp Hematologic/Lymphatic: Positive for easy bruising; No easy bleeding Exam Const General: cooperative and comfortable Nutritional Appearance: obese Orientation: alert, awake and oriented x3 Quality Reporting Tobacco Screening ([facility] 138) Smoking Status: Current every day smoker Assessment and Plan Assessment and Plan (1) Iron deficiency anemia: Status: Chronic Qualifiers: Iron deficiency anemia type: unspecified iron deficiency Qualified Code(s): D50.9 - Iron deficiency anemia, unspecified Plan: She will undergo an upper and lower endoscopy due to decreasing hemoglobin and persistent iron deficiency anemia. She is also had some intermittent diarrhea with fecal positive stools that could indicate GI bleed. She was explained alternatives, risk, benefits include not withstanding bleeding, infection, sepsis, perforation, need for emergent urgent . She will have an ASA of 3. Update labs today to f/u anemia and indeterminate ANCA Continue Creon with snacks and meals Add colestipol for bile induced diarrhea F/u 6 mos (2) Chronic diarrhea: Status: Chronic Plan: Add colestipol for bile (3) Exocrine pancreatic insufficiency: Status: Chronic Plan: Continue Creon I have examined the patient and the H&P has been reviewed. There are no clinical changes since date of exam.
[2023-07-07 06:26] LABS: Bedside Glucose 153 mg/dL (74-106)
--- NOTE | 2023-07-07 07:22 | OP.EGD_ITS ---
Patient Name: Ayla Abreu Procedure Date: 07/07/2023 6:19 AM Date of : 1950 Age: 72 Procedure: Upper GI endoscopy Indications: Dysphagia Providers: Fabien Valentin DO Medicines: Monitored Anesthesia Care Patient Profile: This is a 72 year old female. Refer to note in patient chart for documentation of history and physical. Patient has symptoms of chronic cough, chronic dysphagia, chronic heartburn and chronic nausea. Complications: No immediate complications. Procedure: Pre-Anesthesia Assessment: - Prior to the procedure, a History and Physical was performed, and patient medications and allergies were reviewed. The patient is competent. The risks and benefits of the procedure and the sedation options and risks were discussed with the patient. All questions were answered and informed consent was obtained. Patient identification and proposed procedure were verified by the physician in the pre-procedure area. Mental Status Examination: alert and oriented. Airway Examination: normal oropharyngeal airway and neck mobility. Respiratory Examination: clear to auscultation. CV Examination: normal. Prophylactic Antibiotics: The patient does not require prophylactic antibiotics. Prior Anticoagulants: The patient has taken no anticoagulant or antiplatelet agents. ASA Grade Assessment: III - A patient with severe systemic disease. After reviewing the risks and benefits, the patient was deemed in satisfactory condition to undergo the procedure. The anesthesia plan was to use monitored anesthesia care (MAC). Immediately prior to administration of medications, the patient was re-assessed for adequacy to receive sedatives. The heart rate, respiratory rate, oxygen saturations, blood pressure, adequacy of pulmonary ventilation, and response to care were monitored throughout the procedure. The physical status of the patient was re-assessed after the procedure. After obtaining informed consent, the endoscope was passed under direct vision. Throughout the procedure, the patient's blood pressure, pulse, and oxygen saturations were monitored continuously. The Colonoscope was introduced through the mouth, and advanced to the second part of duodenum. The upper GI endoscopy was accomplished without difficulty. The patient tolerated the procedure well. Scope In: 6:44:03 AM Scope Out: 6:49:43 AM Total Procedure Duration Time 0 hours 5 minutes 40 seconds Findings: Abnormal motility was noted in the upper third of the esophagus. The cricopharyngeus was abnormal. There are extra peristaltic waves in the esophageal body. The distal esophagus/lower esophageal sphincter is spastic, but gives up passage to the endoscope. Secondary peristaltic waves are noted. Biopsies were taken with a cold forceps for histology. Verification of patient identification for the specimen was done. Estimated blood loss was minimal. A small hiatal hernia was present. No gross lesions were noted in the entire examined stomach. No gross lesions were noted in the first portion of the duodenum. Impression: - Abnormal esophageal motility, suspicious for esophageal spasm. Biopsied. - Small hiatal hernia. - No gross lesions in the entire stomach. - No gross lesions in the first portion of the duodenum. Recommendation: - Discharge patient to home. - Resume previous diet. - Continue present medications. - Await pathology results. Procedure Code(s): --- Professional --- 45724, Esophagogastroduodenoscopy, flexible, transoral; with biopsy, single or multiple CPT copyright 2021 [employer]. All rights reserved. The codes documented in this report are preliminary and upon consulting intern review may be revised to meet current compliance requirements. Fabien Valentin DO 07/07/2023 7:20:47 AM This report has been signed electronically. Number of Addenda: 0 Note Initiated On: 07/07/2023 6:19 AM
--- NOTE | 2023-07-07 07:22 | OP.CCLET_ITS ---
07/07/2023 Sonia Álvarez [place] [id number] [address] Re : Upper GI endoscopy procedure for Ayla Abreu Dear Dr. Álvarez This procedure was performed on Friday, July 07, 2023. My impressions and recommendations are as follows: Impressions : - Abnormal esophageal motility, suspicious for esophageal spasm. Biopsied. - Small hiatal hernia. - No gross lesions in the entire stomach. - No gross lesions in the first portion of the duodenum. Recommendations : - Discharge patient to home. - Resume previous diet. - Continue present medications. - Await pathology results. My findings are described in the full procedure note, which is enclosed. If I can be of further assistance, please feel free to contact me at . Sincerely, Fabien Valentin, 07/07/2023 7:20:47 AM This report has been signed electronically.
--- NOTE | 2023-07-07 07:26 | OP.CCLET_ITS ---
07/07/2023 Sonia Álvarez [id number] [facility] [address] [address] Re : Colonoscopy procedure for Ayla Abreu Dear Dr. Álvarez This procedure was performed on Friday, July 07, 2023. My impressions and recommendations are as follows: Impressions : - Preparation of the colon was fair. - Diverticulosis in the recto-sigmoid colon, in the sigmoid colon and in the descending colon. - Stool in the recto-sigmoid colon, in the sigmoid colon, at the splenic flexure, in the transverse colon and in the cecum. - One 3 mm polyp in the transverse colon, removed with a jumbo cold forceps. Resected and retrieved. - Congested mucosa in the terminal ileum. Biopsied. Recommendations : - Discharge patient to home. - Resume previous diet. - Continue present medications. - Await pathology results. - Repeat colonoscopy. My findings are described in the full procedure note, which is enclosed. If I can be of further assistance, please feel free to contact me at . Sincerely, Fabien Valentin, 07/07/2023 7:25:56 AM This report has been signed electronically.
--- NOTE | 2023-07-07 07:26 | OP.COLON_ITS ---
Patient Name: Ayla Abreu Procedure Date: 07/07/2023 6:49 AM Date of : 1950 Age: 72 Procedure: Colonoscopy Indications: Clinically significant diarrhea of unexplained origin, Iron deficiency anemia Providers: Fabien Valentin DO Medicines: Monitored Anesthesia Care Patient Profile: This is a 72 year old female. Refer to note in patient chart for documentation of history and physical. Patient has symptoms of chronic cough, chronic dysphagia, chronic heartburn and chronic nausea. Last Colonoscopy: within the past 3 years. Complications: No immediate complications. Procedure: Pre-Anesthesia Assessment: - Prior to the procedure, a History and Physical was performed, and patient medications and allergies were reviewed. The patient is competent. The risks and benefits of the procedure and the sedation options and risks were discussed with the patient. All questions were answered and informed consent was obtained. Patient identification and proposed procedure were verified by the physician in the pre-procedure area. Mental Status Examination: alert and oriented. Airway Examination: normal oropharyngeal airway and neck mobility. Respiratory Examination: clear to auscultation. CV Examination: normal. Prophylactic Antibiotics: The patient does not require prophylactic antibiotics. Prior Anticoagulants: The patient has taken no anticoagulant or antiplatelet agents. ASA Grade Assessment: III - A patient with severe systemic disease. After reviewing the risks and benefits, the patient was deemed in satisfactory condition to undergo the procedure. The anesthesia plan was to use monitored anesthesia care (MAC). Immediately prior to administration of medications, the patient was re-assessed for adequacy to receive sedatives. The heart rate, respiratory rate, oxygen saturations, blood pressure, adequacy of pulmonary ventilation, and response to care were monitored throughout the procedure. The physical status of the patient was re-assessed after the procedure. After I obtained informed consent, the scope was passed under direct vision. Throughout the procedure, the patient's blood pressure, pulse, and oxygen saturations were monitored continuously. The Colonoscope was introduced through the anus and advanced to the terminal ileum. The colonoscopy was performed without difficulty. The patient tolerated the procedure well. The quality of the bowel preparation was fair. The terminal ileum, ileocecal valve, appendiceal orifice, and rectum were photographed. Scope In: 6:53:44 AM Scope Withdrawal Time 0 hours 8 minutes 56 seconds Scope Out: 7:10:13 AM Total Procedure Duration Time 0 hours 16 minutes 29 seconds Findings: The perianal and digital rectal examinations were normal. Scattered small and large-mouthed diverticula were found in the recto-sigmoid colon, sigmoid colon and descending colon. Stool was found in the recto-sigmoid colon, in the sigmoid colon, at the splenic flexure, in the transverse colon and in the cecum. A 3 mm polyp was found in the transverse colon. The polyp was sessile. The polyp was removed with a jumbo cold forceps. Resection and retrieval were complete. Verification of patient identification for the specimen was done. Estimated blood loss was minimal. A patchy area of the terminal ileum was congested. Biopsies were taken with a cold forceps for histology. Verification of patient identification for the specimen was done. Estimated blood loss was minimal. Impression: - Preparation of the colon was fair. - Diverticulosis in the recto-sigmoid colon, in the sigmoid colon and in the descending colon. - Stool in the recto-sigmoid colon, in the sigmoid colon, at the splenic flexure, in the transverse colon and in the cecum. - One 3 mm polyp in the transverse colon, removed with a jumbo cold forceps. Resected and retrieved. - Congested mucosa in the terminal ileum. Biopsied. Recommendation: - Discharge patient to home. - Resume previous diet. - Continue present medications. - Await pathology results. - Repeat colonoscopy. Procedure Code(s): --- Professional --- 05803, Colonoscopy, flexible; with biopsy, single or multiple CPT copyright 2021 [employer]. All rights reserved. The codes documented in this report are preliminary and upon director internal control review may be revised to meet current compliance requirements. Fabien Valentin DO 07/07/2023 7:25:56 AM This report has been signed electronically. Number of Addenda: 0 Note Initiated On: 07/07/2023 6:49 AM
== END 2023-07-07 08:02 | disposition home or self-care (01) ==
LOC: EN 05:20 → AC 05:21
PROVIDERS: PCP Family Medicine; Referring Provider Family Medicine; Visit Provider Internal Medicine Gastroenterology
PROC: 0DJD8ZZ Inspection of Lower Intestinal Tract, Via Natural or Artificial Opening Endoscopic (ICD-10-PCS; CPT 45378; principal; 2023-07-07 06:25)
DX: K20.90 Esophagitis, unspecified without bleeding (principal); J43.9 Emphysema, unspecified; E11.9 Type 2 diabetes mellitus without complications; D50.9 Iron deficiency anemia, unspecified; K57.30 Diverticulosis of large intestine without perforation or abscess without bleeding; K63.5 Polyp of colon; K44.9 Diaphragmatic hernia without obstruction or gangrene; K86.81 Exocrine pancreatic insufficiency; E78.00 Pure hypercholesterolemia, unspecified; I10 Essential (primary) hypertension; Z79.84 Long term (current) use of oral hypoglycemic drugs; Z79.82 Long term (current) use of aspirin; Z79.899 Other long term (current) drug therapy
CPT/HCPCS: 45380; 43239; 82962; 88305; 88313; J7120

== ENCOUNTER → 2023-07-20 | Outpatient (CLI) | payer MEDICARE, SELFPAY ==
--- NOTE | 2023-07-20 15:45 | RAD_ITS ---
STUDY: X-RAY - CERVICAL SPINE REASON FOR EXAM: Female, 73 years old. Spondylosis without myelopathy or radiculopathy, cervical region TECHNIQUE: 3 view(s) of the cervical spine were obtained. COMPARISON: None FINDINGS: Normal anterior atlantoaxial articulation. Normal odontoid process. Normal cervical lordosis. There is multi-level endplate spondylosis. There is multi-level degenerative disc disease with multilevel disc space narrowing. The soft tissue structures are unremarkable. There is no demonstrated fracture of the cervical spine. RAD/Cerv Spine 2 or 3 Views IMPRESSION: Degenerative changes. No acute abnormalities. Electronically Signed: Terrence Patel MD at 22:55 EDT ,
== END | disposition home or self-care (01) ==
LOC: RAD 15:33
PROVIDERS: PCP Family Medicine; Referring Provider Anesthesiology Pain Medicine; Visit Provider Anesthesiology Pain Medicine
DX: M47.812 Spondylosis without myelopathy or radiculopathy, cervical region (principal)
CPT/HCPCS: 72040

== ENCOUNTER → 2023-09-15 | Outpatient (CLI) | payer MEDICARE, SELFPAY ==
[2023-09-15 15:19] LABS: Absolute Lymphocyte Count 3.11 X10^3/uL (0.83-4.51); Absolute Neutrophil Count 6.6 X10^3/uL (2.0-7.7); Basophil# 0.09 X10^3/uL; Basophil% 0.8 % (0-1); Eosinophil# 0.17 X10^3/uL; Eosinophils% 1.6 % (0-5); Hematocrit 35.9 % (37-47); Hemoglobin 10.1 g/dL (12.0-15.0); Lymphocyte # 3.11 X10^3/ul (0.83-4.51); Lymphocyte % 28.6 % (19-41); Mean Corp Hgb Conc 28.1 g/dL (32-36); Mean Corpuscular Hgb 22.9 pg (27.0-32.0); Mean Corpuscular Volume 81.4 fL (81-99); Mean Platelet Vol. 9.3 fl (6.2-12.0); Monocyte# 0.86 X10^3/uL; Monocyte% 7.9 % (0-10); NRBC Flagged by Analyzer 0 % (0-5); Neutrophil % 60.7 % (47-70); POSITIVE MORPHOLOGY YES; Platelet Count 483 K/mm3 (150-450); RBC Distribution Width CV 20.6 % (11.6-14.6); RBC Distribution Width SD 59.3 fl (35.1-43.9); Red Blood Count 4.41 M/mm3 (4.2-5.4); White Blood Count 10.9 K/mm3 (4.4-11.0)
[2023-09-15 15:32] LABS: Differential Indicated SCAN CRITERIA MET
[2023-09-15 15:38] LABS: Ferritin 3 ng/mL (8-252); Iron 23 ug/dL (50-170); Iron Binding Capacity,Total 469 ug/dL (250-450)
[2023-09-15 15:44] LABS: Differential Comment SCANNED
[2023-09-15 15:45] LABS: Anisocytosis 2+; Crenated RBC 2+; Ovalocyte RARE
[2023-09-15 15:46] LABS: Hypochromasia 1+; Polychromasia RARE
== END | disposition home or self-care (01) ==
LOC: BFHLAB 11:02
PROVIDERS: PCP Family Medicine; Referring Provider Family Medicine; Visit Provider Family Medicine
DX: D64.9 Anemia, unspecified (principal)
CPT/HCPCS: 36415; 82728; 83540; 83550; 85025

== ENCOUNTER → 2023-10-20 | Outpatient (CLI) | payer MEDICARE, SELFPAY ==
--- NOTE | 2023-10-20 13:19 | CT_ITS ---
STUDY: LOW DOSE CT LUNG CANCER SCREENING REASON FOR EXAM: Female, 73 years old. Lung cancer screening -- 55 pk yr hx;current smoker;asymptomatic RADIATION DOSAGE (If Supplied By Facility): CTDIvol = ( 2.39 ) mGy, DLP = ( 72.36 ) mGycm TECHNIQUE: No contrast was administered. Low dose technique was utilized (average mAS-38 and kVp 120). 1.25 mm axial source images with a slice interval of 1.25-mm were reconstructed in lung windows. 2.5 mm axial source images with a slice interval of 2.5-mm were reconstructed in lung windows. 5.0 mm axial source images with a slice interval of 5.0-mm were reconstructed in soft tissue windows. COMPARISON: Comparison is made with prior study May 16, 2022. NODULES: No suspicious nodules are seen. Emphysema: Hyperinflation. Stable mild emphysematous changes. Endobronchial lesion: Unremarkable Aorta: Calcified atherosclerotic plaques. CORONARY ARTERIES: Coronary artery calcification is seen. Heart: Unremarkable Pulmonary artery: Unremarkable Mediastinal nodes: Marked Other chest and abdominal findings: CT/Low Dose CT Lung Screening IMPRESSION: Lung-RADS category 2 - Continue annual screening with LDCT in 12 months. IMPORTANT NOTES FOR USE: ACR Lung-RADS Version 1.1 Assessment Categories Release Date: 2018 Category: Coded 0-4 bases on nodule(s) with highest degree of suspicion. Negative screen is defined as categories 1 and 2; a positive screen is defined as categories 3 and 4. Category 3 and 4A nodules that are unchanged on interval CT should be coded as category 2, and individuals returned to screening in 12 months. Category 4X: Category 3 or 4 nodules with additional imaging findings that increase the suspicion of lung cancer, such as spiculation, GGN that doubles in size in 1 year, enlarged lymph notes, etc. Category Modifiers: S (significant finding unrelated to lung cancer) Electronically Signed: Jose Brewer MD at 14:16 EDT ,
== END | disposition home or self-care (01) ==
LOC: CT 13:18
PROVIDERS: PCP Family Medicine; Referring Provider Nurse Practitioner Family; Visit Provider Nurse Practitioner Family
DX: D50.8 Other iron deficiency anemias (principal); Z12.2 Encounter for screening for malignant neoplasm of respiratory organs; Z87.891 Personal history of nicotine dependence
CPT/HCPCS: 36415; 71271; 82728; 82784; 83516; 83540; 83550; 83615; 85025; 85652; 86255

== ENCOUNTER 2023-11-16 12:49 | Outpatient (RCR) | payer MEDICARE, SELFPAY | END 2023-11-30 23:59 | LOC: NS 12:49 | PROVIDERS: PCP Family Medicine; Referring Provider Internal Medicine Gastroenterology; Visit Provider Internal Medicine Gastroenterology | DX: Z71.3 Dietary counseling and surveillance (principal); K58.9 Irritable bowel syndrome, unspecified; E11.9 Type 2 diabetes mellitus without complications | CPT/HCPCS: 97802 ==

== ENCOUNTER 2023-12-15 09:10 | Outpatient (RCR) | payer MEDICARE, SELFPAY | END 2023-12-31 23:59 | LOC: NS 09:10 | PROVIDERS: PCP Family Medicine; Referring Provider Internal Medicine Gastroenterology; Visit Provider Internal Medicine Gastroenterology | DX: Z71.3 Dietary counseling and surveillance (principal); E11.9 Type 2 diabetes mellitus without complications; K58.9 Irritable bowel syndrome, unspecified | CPT/HCPCS: 97803 ==

== ENCOUNTER → 2024-03-18 | Outpatient (CLI) | payer MEDICARE, SELFPAY | END | disposition home or self-care (01) | LOC: LABSPEC 08:20 | PROVIDERS: PCP Family Medicine; Referring Provider Internal Medicine Medical Oncology; Visit Provider Internal Medicine Medical Oncology | DX: D50.8 Other iron deficiency anemias (principal) | CPT/HCPCS: 82274 ==

== ENCOUNTER → 2024-03-22 | Outpatient (CLI) | payer MEDICARE, SELFPAY ==
--- NOTE | 2024-03-22 07:27 | CT_ITS ---
STUDY: CT ABDOMEN AND PELVIS WITH CONTRAST REASON FOR EXAM: Female, 73 years old. ABDOMINAL PAIN, HX OF DIVERTICULITIS RADIATION DOSAGE (If Supplied By Facility): CTDIvol = ( 16.35 ) mGy, DLP = ( 1126.57 ) mGycm TECHNIQUE: Transaxial images were obtained from the dome of the diaphragm to the symphysis pubis with oral contrast. Oral and amp; IV Readi-CAT and amp; 100mL Isovue-370 was administered. Sagittal and coronal images were reconstructed. Individualized dose optimization techniques were used for this CT. COMPARISON: Comparison is made with prior study of May 16, 2022. FINDINGS: The visualized lung bases are unremarkable. Coronary artery calcification. Normal liver. Questionable tiny layering gallstones in the dependent portion of the gallbladder lumen. Normal spleen. Normal pancreas. There is a small, circumscribed, smooth, low attenuation right adrenal mass, consistent with an adrenal adenoma. This measures 1.9 cm. Normal left adrenal gland. Normal right kidney. Normal left kidney. Normal visualized stomach. Normal small intestine. There is diverticulosis, with thickening of the colon wall, and pericolonic inflammation changes consistent with acute diverticulitis. The appendix is visualized and appears normal. There is scattered atherosclerotic calcification of the abdominal aorta, without a demonstrated aneurysm. Normal inferior vena cava. Normal retroperitoneum. Normal urinary bladder. Normal abdominal wall. There are degenerative changes of the visualized lumbar spine. CT/Abdomen/Pelvis WITH Contrast IMPRESSION: Findings suggestive of noncomplicated acute sigmoid diverticulitis. Electronically Signed: Jose Brewer MD at 15:51 EST ,
== END | disposition home or self-care (01) ==
PROVIDERS: PCP Family Medicine; Referring Provider Anesthesiology Pain Medicine; Visit Provider Anesthesiology Pain Medicine
DX: K52.9 Noninfective gastroenteritis and colitis, unspecified (principal); K86.81 Exocrine pancreatic insufficiency
CPT/HCPCS: 74177; Q9967

== ENCOUNTER 2024-04-04 11:36 | Outpatient (RCR) | payer MEDICARE, SELFPAY | END 2024-04-29 23:59 | LOC: NS 11:36 | PROVIDERS: PCP Family Medicine; Referring Provider Internal Medicine Gastroenterology; Visit Provider Internal Medicine Gastroenterology | DX: E11.9 Type 2 diabetes mellitus without complications (principal); K58.9 Irritable bowel syndrome, unspecified | CPT/HCPCS: 97803 ==

== ENCOUNTER → 2024-04-04 | Outpatient (CLI) | payer MEDICARE, SELFPAY ==
--- NOTE | 2024-04-04 11:00 | MRI_ITS ---
PROCEDURE: SPINE CERVICAL (ROUTINE) REASON FOR EXAM: Neck pain. TECHNIQUE: Cervical spine MRI without intravenous gadolinium-based contrast. COMPARISON: None. FINDINGS: Vertebrae: Cervical vertebral body heights are preserved. Bone marrow signal is unremarkable. Alignment: Normal. No spondylolisthesis. Spinal Cord: Cervical spinal cord is of normal size and signal intensities. Structures at the foramen magnum are unremarkable. C2-3: Unremarkable C3-4: Disc bulging resulting in partial effacement of the anterior thecal sac. No neural foraminal stenosis. C4-5: Grade 1 anterolisthesis and disc bulging with superimposed right paramidline and left paramidline disc protrusions resulting in anterior contact the cord. No neural foraminal stenosis. C5-6: Grade 1 anterolisthesis and disc bulging resulting in anterior contact the cord. Moderate right mild left neural foraminal stenosis primarily due to disc bulging. C6-7: Grade 1 anterolisthesis resulting in partial effacement of the anterior thecal sac. Mild bilateral neural foraminal stenosis. Small 5.9 mm cyst in the right neural foramen, likely a perineural cyst. C7-T1: Unremarkable Postcontrast images: No suspicious contrast enhancement. MRI/Spine Cervical (Routine) IMPRESSION: Multilevel spondylosis. Multilevel spondylolisthesis. 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 Reading Location: [id number]
== END | disposition home or self-care (01) ==
PROVIDERS: PCP Family Medicine; Referring Provider Anesthesiology Pain Medicine; Visit Provider Anesthesiology Pain Medicine
DX: M54.12 Radiculopathy, cervical region (principal)
CPT/HCPCS: 72141

== ENCOUNTER → 2024-05-10 | Outpatient (CLI) | payer MEDICARE, SELFPAY ==
[2024-05-14 08:08] LABS: Calprotectin, Stool 26 ug/g (0-120)
== END | disposition home or self-care (01) ==
LOC: LAB 12:34 → LABSPEC 12:35
PROVIDERS: PCP Family Medicine; Referring Provider Internal Medicine Gastroenterology; Visit Provider Internal Medicine Gastroenterology
DX: K52.9 Noninfective gastroenteritis and colitis, unspecified (principal); E61.1 Iron deficiency
CPT/HCPCS: 82274; 83993; 87493

== ENCOUNTER → 2024-05-12 | Outpatient (CLI) | payer MEDICARE, SELFPAY ==
[2024-05-14 08:08] LABS: Calprotectin, Stool 46 ug/g (0-120); Fats, Neutral Normal (.); Fats, Total Normal (.)
[2024-05-16 01:07] LABS: Giardia Lamblia, Stool EIA Negative (Negative); Pancreatic Elastase, Fecal 57 (>200)
== END | disposition home or self-care (01) ==
PROVIDERS: PCP Family Medicine; Referring Provider Internal Medicine Gastroenterology; Visit Provider Internal Medicine Gastroenterology
DX: K52.9 Noninfective gastroenteritis and colitis, unspecified (principal); E61.1 Iron deficiency
CPT/HCPCS: 82653; 82705; 83630; 83993; 87177; 87209; 87329

== ENCOUNTER 2024-07-13 09:53 | Outpatient (RCR) | payer MEDICARE, SELFPAY | END 2024-07-30 23:59 | LOC: NS 09:53 | PROVIDERS: PCP Family Medicine; Referring Provider Internal Medicine Gastroenterology; Visit Provider Internal Medicine Gastroenterology | DX: E11.9 Type 2 diabetes mellitus without complications (principal); K58.9 Irritable bowel syndrome, unspecified; Z71.3 Dietary counseling and surveillance | CPT/HCPCS: 97803 ==

== ENCOUNTER 2024-08-01 10:19 | Day surgery (SDC) | payer MEDICARE, SELFPAY ==
--- NOTE | 2024-07-28 13:44 | PAT.ANE_ITS ---
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 When Was Last Pacemaker Check QUESTION #4 FULL TEXT: You/Your Family Experience fever (hyperthermia) with Anesthesia Last Oral Intake Last Oral intake: Last Oral Intake NPO since Meds taken in AM with sips of water? Meds patient instructed to take am of surgery PONV PONV - electrical panel builder: PONV - electrical panel builder Female Yes 07/28/24 10:19 HX of Motion Sickness No 07/28/24 10:19 HX of N/V After Surgery No 07/28/24 10:19 Non-Smoker No 07/28/24 10:19 Duration of Surgery greater No 07/28/24 10:19 than 60 minutes Number of Risk Factors 1 07/28/24 10:19 PONV Score Low Risk 07/28/24 10:19 Height & Weight Height & Weight: Anesthesia: Height & Weight Height 5 ft 06/07/24 15:07 Respiratory Assessment Respiratory Assessment - electrical panel builder: Respiratory Tract Infection Hx - electrical panel builder Hx Respiratory Tract Infection No 07/28/24 10:19 STOP Sleep Apnea STOP Sleep Apnea - electrical panel builder: STOP Sleep Apnea - electrical panel builder Hx Hypertension Yes: PER PT, CONTROLLED ON 07/28/24 10:19 MEDS Hx Sleep Apnea Yes 07/28/24 10:19 CPAP No 07/28/24 10:19 BIPAP No 07/28/24 10:19 Do you snore loudly (louder than talking or can be heard Do you often feel tired/ fatigued/ sleepy during daytime? Has anyone observed you stop breathing during sleep? STOP Results Positive 07/28/24 10:19 QUESTION #5 FULL TEXT : Do you snore loudly (louder than talking or can be heard through closed doors)? 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 Specify any problems Hx of Preganancy in last 3 No 07/28/24 10:19 Months Nurse Filling Out Transfusion MGRIROGELIOITH 07/28/24 10:19 & Questions: Date: 07/28/24 07/28/24 10:19 Time: 10:22 07/28/24 10:19 Patient unable to answer at this time (ie. confused, unrespo /Reproduction History /Reproductive History - electrical panel builder: /Reproductive Hx- electrical panel builder Hx Now No 07/28/24 10:19 Gestational Age (in weeks): EDC: Hx Hx Para Hx Section SAB No 07/28/24 10:19 [facility] Medical History (Updated 07/28/24 @ 10:29 by Debbie Duong) Arthritis Sleep apnea History of echocardiogram History of stress test Encounter for screening for malignant neoplasm of lung Tobacco use disorder, continuous Encounter for screening for malignant neoplasm of lung in patient with less than 30 pack year smoking history Wears glasses Edentulous Diabetes Low iron Anemia Easy bruising High cholesterol Difficulty swallowing History of ulceration History of diverticulitis Vertigo Shortness of breath on exertion Emphysema, unspecified Smoker Hypertension History of cyst of breast Depression Anxiety Microcytic anemia Vitamin D deficiency Carpal tunnel syndrome of right wrist Rheumatoid arthritis Osteopenia HLD (hyperlipidemia) CVA (cerebral vascular accident) Type 2 diabetes mellitus Home Medications ?Medication ?Instructions ?Recorded ?Last Taken ?Type atorvastatin 80 mg tablet 80 mg PO DAILY 02/03/22 Unkn own History clopidogrel 75 mg tablet 75 mg PO DAILY 02/03/22 Unkn own History empagliflozin 10 mg tablet 10 mg PO DAILY 02/03/22 Unk nown History (Jardiance) fluoxetine 20 mg capsule 20 mg PO DAILY DEPRESSION Unknown History lisinopril 2.5 mg tablet 2.5 mg PO DAILY 02/03/22 History meclizine 12.5 mg tablet 12.5 mg PO BID-QID PRN Verti go 02/03/22 Unknown History aspirin 81 mg tablet,delayed 81 mg PO DAILY 04/25/22 U nknown History release ascorbic acid (vitamin C) 500 mg 500 mg PO DAILY 06/13 Unknown History tablet (Vitamin C) cholecalciferol (vitamin D3) 25 25 mcg PO BID 06/13/22 Unknown History mcg (1,000 unit) chewable tablet (Vitamin D3) [id number] 8 mg-folic 400 1 tab PO DAILY 06/13 Unknown History mcg-K 50 mcg-lutein 300 mcg tablet (Multivitamin Women 50 Plus) vit C 250 mg-E 90 mg-zinc 40 1 tab PO BID 06/13/22 Unk nown History mg-copper 1 jv-fekdib-yijnjm chew tablet (PreserVision AREDS-2) [id number] See Rx Instructions PO .COMP JUANA 04/08/23 Unknown Rx 36,000-114,000-180,000 unit #56 caps capsule,delay rel (Creon) albuterol sulfate 90 mcg/actuation 2 puff inhalation Q 4H PRN PRN 07/01/23 Unknown History aerosol inhaler shortness of breath or wheez ing metformin 1,000 mg tablet 500 mg PO BID 05/06/24 Unkno wn History polysaccharide iron complex 150 mg 150 mg PO TU Unknown History iron capsule (Ferrex) Allergy/AdvReac Type Severity Reaction Status Date / Time oxycodone (From Percocet) Allergy Intermediate Other Verified 07/28/24 10:14 Family History Father Bowel disease Colon cancer CVA (cerebral vascular accident) Mother Arthritis Cancer Brother Heart disease Sister Dementia Surgical History History of radiofrequency ablation (RFA) of nerve of cervical spine Hx of surgical procedure History of esophagogastroduodenoscopy (EGD) History of colonoscopy History of carpal tunnel surgery History of tonsillectomy and adenoidectomy Tubal ligation status Social History housing: house Smoking Status: Current every day smoker tobacco type: cigarettes alcohol intake: current substance use type: does not use Audit: Pertinent Findings Pertinent Findings EKG Perinent findings: NSR 03/26/2024 Stress test pertinent findings: 03/2024: Negative stress test, with EF 70% Echo (EF%) pertinent findings: 03/2024: EF 60-65%, grade 1 diastolic dysfxn, otherwise WNL echo. Aortic valve trileaflet with sclerosis, mild mitral annual calcivication with trivial mitral valve regurgitation Recommendation Anesthesia Recommendation Anesthesia recommendation: OPTIMIZED for anesthesia
[2024-08-01] VITALS (10 sets, daily range): BP systolic 111–132; BP diastolic 54–76; PULSE 72–102; RESP 16–20; TEMP 36.1–36.7; O2SAT 94–99; BMI 33.5
[2024-08-01] MEDS: Lactated Ringers 1,000 ML 15 ML IV (10:48)
--- NOTE | 2024-08-01 11:08 | PCM.PRE.AN2 ---
ASA Classification* ASA Classification ASA Classification: 3 (Smoker, emphysema, h/o CVA, hx Iron transfusions for anemia, CHRISTINA, T2DM, HTN) Assessment & Plan Anesthesia* Anesthesia Assessment Anesthesia Assessment: Discussed sedation and/or anesthesia options, risks, benefits, and alternatives with patient/parents/legal guardian/POA. Questions invited. The patient/parents/legal guardian/POA seems to understand and agrees to proceed with anesthesia plan. Reviewed the physical assessment, medical history, allergy history and patient home medications list prior to surgery/procedure/anesthetic and documented any changes. Performed airway and anesthesia risk assessments. Anesthesia Type Anesthesia Type: General History Source History Obtained from:: Patient and Chart Anesthesia Focused Assessment* Temperature: 98.1 F Pulse Rate: 84 Blood Pressure: 123/67 Respiratory Rate: 16 Pulse Ox: 97 Oxygen Delivery Method: Room Air Airway Assessment Mouth opens: >3 cm Mallampati Score: III Teeth Condition: Intact Neck Range of motion (ROM): Full ROM Focused Labs Anesthesia Preop lab: CBC WBC 9.0 K/mm3 (4.4-11.0) 06/07/24 13:57 06/07/24 RBC 4.76 M/mm3 (4.2-5.4) 06/07/24 13:57 06/07/24 Hgb 14.2 g/dL (12.0-15.0) 06/07/24 13:57 06/07/24 Hct 44.9 % (37-47) 06/07/24 13:57 06/07/24 Plt Count 332 K/mm3 (150-450) 06/07/24 13:57 06/07/24 CHEMISTRY Potassium 4.1 mmol/L (3.3-5.1) 06/07/24 13:57 06/07/24 Sodium 140 mmol/L (133-145) 06/07/24 13:57 06/07/24 BUN 15 mg/dL (4-19) 06/07/24 13:57 06/07/24 Creatinine 0.64 mg/dL (0.70-1.20) L 06/07/24 13:57 06/07/24 Glucose 199 mg/dL (70-99) H 06/07/24 13:57 06/07/24 POC Glucose 153 mg/dL (74-106) H 07/07/23 06:06 07/07/23 TSH 1.58 uIU/mL (0.358-3.74) 04/01/22 11:23 04/01/22 COAG Pre-Assessment Diagnosis/Proposed Procedure Planned Operative Procedure(s): EGD, COLONOSCOPY Anesthesia History Anesthesia History - 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 When Was Last Pacemaker Check QUESTION #4 FULL TEXT: You/Your Family Experience fever (hyperthermia) with Anesthesia Last Oral Intake Last Oral intake: Last Oral Intake NPO since 06:30 08/01/24 10:40 Meds taken in AM with sips of No 08/01/24 10:40 water? Meds patient instructed to take am of surgery PONV PONV - photoengraving sketch maker: PONV - photoengraving sketch maker Female Yes 07/28/24 10:19 HX of Motion Sickness No 07/28/24 10:19 HX of N/V After Surgery No 07/28/24 10:19 Non-Smoker No 07/28/24 10:19 Duration of Surgery greater No 07/28/24 10:19 than 60 minutes Number of Risk Factors 1 07/28/24 10:19 PONV Score Low Risk 07/28/24 10:19 Height & Weight Height & Weight: Anesthesia: Height & Weight Height 5 ft 08/01/24 10:40 Weight: 78 kg 08/01/24 10:40 Body Mass Index (BMI) 33.5 08/01/24 10:40 Respiratory Assessment Respiratory Assessment - photoengraving sketch maker: Respiratory Tract Infection Hx - photoengraving sketch maker Hx Respiratory Tract Infection No 07/28/24 10:19 STOP Sleep Apnea STOP Sleep Apnea - photoengraving sketch maker: STOP Sleep Apnea - photoengraving sketch maker Hx Hypertension Yes: PER PT, CONTROLLED ON 07/28/24 10:19 MEDS Hx Sleep Apnea Yes 07/28/24 10:19 CPAP No 07/28/24 10:19 BIPAP No 07/28/24 10:19 Do you snore loudly (louder than talking or can be heard Do you often feel tired/ fatigued/ sleepy during daytime? Has anyone observed you stop breathing during sleep? STOP Results Positive 07/28/24 10:19 QUESTION #5 FULL TEXT : Do you snore loudly (louder than talking or can be heard through closed doors)? 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 Specify any problems Hx of Preganancy in last 3 No 07/28/24 10:19 Months Nurse Filling Out Transfusion ZOEY 07/28/24 10:19 & Questions: Date: 07/28/24 07/28/24 10:19 Time: 10:22 07/28/24 10:19 Patient unable to answer at this time (ie. confused, unrespo /Reproduction History /Reproductive History - photoengraving sketch maker: /Reproductive Hx- photoengraving sketch maker Hx Now No 07/28/24 10:19 Gestational Age (in weeks): EDC: Hx Hx Para Hx Section SAB No 07/28/24 10:19 Active Medications Active Medications: Current Medications Generic Name Dose Route Start Last Admin Trade Name Freq PRN Reason Stop Dose Admin Lactated Ringer's 1,000 mls @ 15 mls/hr 08/01/24 10:30 08/01/24 10:48 IV 15 mls/hr .Q48H TRAMAINE Administration PFSH Medical History (Updated 07/28/24 @ 10:29 by Debbie Duong) Arthritis Sleep apnea History of echocardiogram History of stress test Encounter for screening for malignant neoplasm of lung Tobacco use disorder, continuous Encounter for screening for malignant neoplasm of lung in patient with less than 30 pack year smoking history Wears glasses Edentulous Diabetes Low iron Anemia Easy bruising High cholesterol Difficulty swallowing History of ulceration History of diverticulitis Vertigo Shortness of breath on exertion Emphysema, unspecified Smoker Hypertension History of cyst of breast Depression Anxiety Microcytic anemia Vitamin D deficiency Carpal tunnel syndrome of right wrist Rheumatoid arthritis Osteopenia HLD (hyperlipidemia) CVA (cerebral vascular accident) Type 2 diabetes mellitus Home Medications ?Medication ?Instructions ?Recorded ?Last Taken ?Type atorvastatin 80 mg tablet 80 mg PO DAILY 02/03/22 Unknown History clopidogrel 75 mg tablet 75 mg PO DAILY 02/03/22 07/28/24 History empagliflozin 10 mg tablet 10 mg PO DAILY 02/03/22 07/28/24 History (Jardiance) fluoxetine 20 mg capsule 20 mg PO DAILY DEPRESSION 02/03/22 Unknown History lisinopril 2.5 mg tablet 2.5 mg PO DAILY 02/03/22 06/18/22 History meclizine 12.5 mg tablet 12.5 mg PO BID-QID PRN Vertigo 02/03/22 Unknown History aspirin 81 mg tablet,delayed 81 mg PO DAILY 04/25/22 07/28/24 History release ascorbic acid (vitamin C) 500 mg 500 mg PO DAILY 06/13/22 Unknown History tablet (Vitamin C) cholecalciferol (vitamin D3) 25 25 mcg PO BID 06/13/22 Unknown History mcg (1,000 unit) chewable tablet (Vitamin D3) [id number] 8 mg-folic 400 1 tab PO DAILY 06/13/22 Unknown History mcg-K 50 mcg-lutein 300 mcg tablet (Multivitamin Women 50 Plus) vit C 250 mg-E 90 mg-zinc 40 1 tab PO BID 06/13/22 Unknown History mg-copper 1 lp-axmxsp-hbaotr chew tablet (PreserVision AREDS-2) [id number] See Rx Instructions PO .COMPLEX 04/08/23 Unknown Rx 36,000-114,000-180,000 unit #56 caps capsule,delay rel (Creon) albuterol sulfate 90 mcg/actuation 2 puff inhalation Q4H PRN PRN 07/01/23 Unknown History aerosol inhaler shortness of breath or wheezing metformin 1,000 mg tablet 500 mg PO BID 05/06/24 Unknown History polysaccharide iron complex 150 mg 150 mg PO TU 07/28/24 07/28/24 History iron capsule (Ferrex) Allergy/AdvReac Type Severity Reaction Status Date / Time oxycodone (From Percocet) Allergy Intermediate Other Verified 08/01/24 10:38 Family History Father Bowel disease Colon cancer CVA (cerebral vascular accident) Mother Arthritis Cancer Brother Heart disease Sister Dementia Surgical History History of radiofrequency ablation (RFA) of nerve of cervical spine Hx of surgical procedure History of esophagogastroduodenoscopy (EGD) History of colonoscopy History of carpal tunnel surgery History of tonsillectomy and adenoidectomy Tubal ligation status Social History housing: house Smoking Status: Current every day smoker tobacco type: cigarettes alcohol intake: current substance use type: does not use Review of Systems (Anesthesia) ROS Narrative System reviewed and no additional complaints, except as documented.
[2024-08-01 11:14] LABS: Bedside Glucose 116 mg/dL (74-106)
--- NOTE | 2024-08-01 11:30 | COLBX_PTH ---
PATIENT: LAUREN DE LA CRUZ LOC: EN U#:[id number] AGE/SX: 74/F ROOM: RE08/01/[address]: Dr. Fabien Valentin DO : 1950 BED: DIS: 08/01/2024 SPEC #: [id number] RECD: 08/01/24 14:13 STATUS: KAILEY SANDRA #: [id number] LEFTY: 08/01/24 11:[address]: Fabien Valentin DEPT: SURGICAL PATHOLOGY RECD BY: Luciano Doherty ENTERED: 08/01/24 14:37 SP TYPE: COLON BX OTHR DR: Dr. Sonia Álvarez MD Tissues: A - Duodenum, NOS B - COLON BIOPSY C - Sigmoid colon biopsy D - Sigmoid colon biopsy Procedures: Surgery Specimen Level IV HEADER OPERATION: Colonoscopy with bipolar probe biopsy and spot marking, EGD PRE-OP DIAGNOSIS: Positive occult stool blood test, iron deficiency, chronic diarrhea, iron deficiency anemia TISSUE SUBMITTED: A- Duodenum biopsy, B- Random colon biopsy, C- Sigmoid polyp biopsy,D- Sigmoid colitis biopsy MICROSCOPIC DIAGNOSIS A. Small bowel, duodenum, biopsy: Elena gland hyperplasia and gastric mucin cell metaplasia, suggestive of peptic injury. B. Colon, random, biopsy: No specific pathologic change. The histologic features of microscopic colitis are not demonstrated. C. Sigmoid colon, polyp, biopsy: Tubular adenoma. D. Sigmoid colon, colitis, biopsy: Tubulovillous adenoma, multiple fragments. Inflammatory polyp, multiple fragments. MICROSCOPIC DESCRIPTION Slides are reviewed. GROSS DESCRIPTION A. Received in formalin in a container labeled with the patient's name, date of , and duodenum biopsy are 2 porter-pink fragments of mucosal tissue each measuring 0.3 x 0.3 x 0.3 cm. Submitted in toto in A1. B. Received in formalin in a container labeled with the patient's name, date of , and random colon biopsy are multiple porter-pink fragments of mucosal tissue measuring 1.2 x 0.7 x 0.3 cm in aggregate. Submitted in toto in B1. C. Received in formalin in a container labeled with the patient's name, date of , and sigmoid polyp biopsy is a 0.4 x 0.3 x 0.3 cm fragment of porter-pink mucosal tissue. Submitted in toto in C1. D. Received in formalin in a container labeled with the patient's name, date of , and sigmoid colitis biopsy are multiple porter-pink fragments of mucosal tissue measuring 1.0 x 0.6 x 0.3 cm in aggregate. Submitted in toto in D1. [facility] 08-01-2024 CPT:35016l1
--- NOTE | 2024-08-01 11:41 | PCM.HP.STD ---
HPI - General General Date of Admission: 08/01/24 Date of Service: 08/01/24 Chief Complaint: abdominal pain and diarrhea with anemia HPI Narrative LAUREN DE LA CRUZ, is a 74 F who presents for iron deficiency anemia. *BGI established 04.25.22 with history of iron deficiency anemia, improved with oral iron though ferritin remains low. Postprandial loose stools with urgency, foul smell and increased flatulence is an issue; cheese is helpful but constipated for 3 days. Typically avoids milk/ice cream. ? Biochemical 04.25.22 CBC, ESR, CMP, CRP LDH, ferritin, TIBC, GAME, BRITTNI comp, ANCA, MUNA, IBD without pertinent abnormality ? Ferritin L7 ? Stool calprotectin, elastase, C.difficile, EP, lactoferrin WNL? Elastase L108 CT abd/pel 05.16.22 small hiatal hernia; thick-walled appearance of duodenum; distended stomach and small bowel; colonic diverticulosis with mild wall thickening and haustral markings containing stool/residual contrast without surrounding inflammation; degenerative spine changes. ? EGD/colonoscopy 06.18.22 EGD small hiatal hernia; bleeding gastric AVM, heater probe; duodenitis. No path changes ? Colonoscopy bleeding AVM; diverticulosis; congested mucosa, minimal glandular architectural change ? Capsule endoscopy 06.18.22 small bowel AVM 46minutes; diffuse, mild erythema that progressed to moderate in severity noted distally OV 07.22.22 Start colestipol for bile induced diarrhea. ? Biochemical 07.22.22 CBC, ferritin, iron, TIBC, ANCA without pertinent abnormality Creon start 05.07.22. Contact 10.14.22 with concern that colestipol is causing vaginal rawness, discharge and itching; encouraged to see primary care/gynecology. Evaluated by PCP and will continue colestipol. OV 03.30.23 feels that her GI symptoms are improved. Loose stools continue but unsure frequency, maybe a week each month. EGD and Colonoscopy 07.07.23 EGD Abnormal esophageal motility, suspicious for esophageal spasm. Biopsied. Small hiatal hernia. No gross lesions in the entire stomach. No gross lesions in the first portion of the duodenum. Colonoscopy Preparation of the colon was fair. Diverticulosis in the recto-sigmoid colon, in the sigmoid colon and in the descending colon. Stool in the recto-sigmoid colon, in the sigmoid colon, at the splenic flexure, in the transverse colon and in the cecum. One 3 mm polyp in the transverse colon, removed with a jumbo cold forceps. Resected and retrieved. Congested mucosa in the terminal ileum. Biopsied. OV 09.28.23 pt reports continued alternating diarrhea and constipation; denies blood in the stool. Pt states that if she takes just 1 colestipol it is not effective, but if she takes 2 she will not have a bm for 4 days. Pt reports difficulty swallowing that has been getting worse lately, chokes on food and has recently starting choking on her saliva as well. Continues with Creon, budesonide, fluoxetine, and colestipol. OV 02.04.24 pt reports continued diarrhea within 15 minutes after eating; states she does not take her colestipol because it causes constipation. Pt reports that she is nauseated everyday and vomits once every two weeks. Pt reports she saw bright red blood in her stool once last week, but has not seen any since. Pt reports that she chokes a lot, even on her own saliva. Pt has questions regarding her iron levels; states she had two iron transfusions within the last few months. abd/pelvis CT 03.22.24 Findings suggestive of noncomplicated acute sigmoid diverticulitis. OV 3.. pt reports that Dr Ibrahim started her back on oral iron and is having alternating bowel movements again. Pt reports that when she is finally able to have a bm she will have diarrhea and it will last a few days, and then she will go several days without being able to have a bm. Pt reports continued difficulty swallowing. [facility] Medical History Arthritis Sleep apnea History of echocardiogram History of stress test Encounter for screening for malignant neoplasm of lung Tobacco use disorder, continuous Encounter for screening for malignant neoplasm of lung in patient with less than 30 pack year smoking history Wears glasses Edentulous Diabetes Low iron Anemia Easy bruising High cholesterol Difficulty swallowing History of ulceration History of diverticulitis Vertigo Shortness of breath on exertion Emphysema, unspecified Smoker Hypertension History of cyst of breast Depression Anxiety Microcytic anemia Vitamin D deficiency Carpal tunnel syndrome of right wrist Rheumatoid arthritis Osteopenia HLD (hyperlipidemia) CVA (cerebral vascular accident) Type 2 diabetes mellitus Home Medications ?Medication ?Instructions ?Recorded ?Last Taken ?Type atorvastatin 80 mg tablet 80 mg PO DAILY 02/03/22 Unknown History clopidogrel 75 mg tablet 75 mg PO DAILY 02/03/22 07/28/24 History empagliflozin 10 mg tablet 10 mg PO DAILY 02/03/22 07/28/24 History (Jardiance) fluoxetine 20 mg capsule 20 mg PO DAILY DEPRESSION 02/03/22 Unknown History lisinopril 2.5 mg tablet 2.5 mg PO DAILY 02/03/22 06/18/22 History meclizine 12.5 mg tablet 12.5 mg PO BID-QID PRN Vertigo 02/03/22 Unknown History aspirin 81 mg tablet,delayed 81 mg PO DAILY 04/25/22 07/28/24 History release ascorbic acid (vitamin C) 500 mg 500 mg PO DAILY 06/13/22 Unknown History tablet (Vitamin C) cholecalciferol (vitamin D3) 25 25 mcg PO BID 06/13/22 Unknown History mcg (1,000 unit) chewable tablet (Vitamin D3) [id number]-[id number] 8 mg-folic 400 1 tab PO DAILY 06/13/22 Unknown History mcg-K 50 mcg-lutein 300 mcg tablet (Multivitamin Women 50 Plus) vit C 250 mg-E 90 mg-zinc 40 1 tab PO BID 06/13/22 Unknown History mg-copper 1 fo-tibznl-kfhidm chew tablet (PreserVision AREDS-2) [id number] See Rx Instructions PO .COMPLEX 04/08/23 Unknown Rx 36,000-114,000-180,000 unit #56 caps capsule,delay rel (Creon) albuterol sulfate 90 mcg/actuation 2 puff inhalation Q4H PRN PRN 07/01/23 Unknown History aerosol inhaler shortness of breath or wheezing metformin 1,000 mg tablet 500 mg PO BID 05/06/24 Unknown History polysaccharide iron complex 150 mg 150 mg PO TU 07/28/24 07/28/24 History iron capsule (Ferrex) Allergy/AdvReac Type Severity Reaction Status Date / Time oxycodone (From Percocet) Allergy Intermediate Other Verified 08/01/24 10:38 Family History Father Bowel disease Colon cancer CVA (cerebral vascular accident) Mother Arthritis Cancer Brother Heart disease Sister Dementia Surgical History History of radiofrequency ablation (RFA) of nerve of cervical spine Hx of surgical procedure History of esophagogastroduodenoscopy (EGD) History of colonoscopy History of carpal tunnel surgery History of tonsillectomy and adenoidectomy Tubal ligation status Social History housing: house Smoking Status: Current every day smoker tobacco type: cigarettes alcohol intake: current substance use type: does not use ROS Constitutional Constitutional: Denies fatigue, fever(s), poor appetite, weight gain or weight loss Gastrointestinal Gastrointestinal: Denies belching, bloating, change in bowel habits, change in stool character, chewing difficulty, coffee ground emesis, constipation, cramping, diarrhea, dyspepsia, dysphagia, early satiety, excessive flatus, fecal incontinence, heartburn, hematemesis, hematochezia, hemorrhoids, loose stools, melena, nausea, odynophagia, rectal bleeding, tenesmus, vomiting or weight changes Vital Signs Vital Signs Vital Signs: 08/01/24 10:40 08/01/24 10:40 08/01/24 11:10 Temperature 98.1 F 98.1 F Temperature Source Temporal Pulse Rate 84 84 Respiratory Rate 16 16 Respiratory Pattern Normal Blood Pressure 123/67 H 123/67 H Blood Pressure Mean 85 Blood Pressure Source Monitor Blood Pressure Position Semi-Fowlers Blood Pressure Location Right Arm Pulse Ox 97 97 Oxygen Delivery Method Room Air Room Air Weight Weight: 171 lb 15.369 oz Body Mass Index (BMI) 33.5 Physical Exam Const alert, oriented x3, no apparent distress and healthy appearing General Appearance: cooperative GI normal to inspection, nondistended, normoactive bowel sounds, soft to palpation, non-tender and non-distended Percussion: normal to percussion Rectal Exam: deferred Results Lab / Micro Data Labs: Laboratory Results - last 24 hr 08/01/24 10:45: POC Glucose 116 H Assessment & Plan Assessment/Plan (1) Positive occult stool blood test: (2) Iron deficiency: (3) Chronic diarrhea: (4) Iron deficiency anemia: QUALIFIERS: Iron deficiency anemia type: unspecified iron deficiency Qualified Code(s): D50.9 - Iron deficiency anemia, unspecified PLAN: Assessment and Plan Assessment and Plan (1) Iron deficiency: Status: Acute (2) Chronic diarrhea: Status: Chronic Plan: She is on pancreatic enzymes for chronic diarrhea likely secondary to exocrine pancreatic insufficiency. Also think she has some chronic diarrhea from her metformin that she takes on a daily basis. She is on budesonide because of some inflammation that was seen on the biopsies on her colonoscopy and it has helped her symptoms. However she thinks that the budesonide is increasing her blood sugars. Therefore we will stop the budesonide and likely need to transition her to sulfasalazine and folic acid. (3) Iron deficiency anemia: Status: Chronic Qualifiers: Iron deficiency anemia type: unspecified iron deficiency Qualified Code(s): D50.9 - Iron deficiency anemia, unspecified Plan: We reviewed her workup including egd, colonoscopy, capsule endoscopy, labs, CT. she had a poor prep but there were no gross signs of bleeding or stigmata of bleeding seen on her colonoscopy. We will have to repeat that in approximately 6 to 12 months. 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 I suspect that is where her GI blood loss is coming from in the setting of antiplatelet therapy. She will need to undergo iron transfusions to get her ferritin up to 200 and her iron up to 150. She is not on oral iron at this time as it severely constipates her. Update labs today to f/u anemia and indeterminate ANCA Continue Creon with snacks and meals F/u 4 mos (4) Exocrine pancreatic insufficiency: Status: Chronic Plan: Continue Creon Orders: Orders MUNA + Protein Elect, Serum Today E61.1 - Iron deficiency LDH Today E61.1 - Iron deficiency Iron Today D64.9 - Anemia, unspecified CBC W/Diff, Automated Today D64.9 - Anemia, unspecified Ferritin Today D50.9 - Iron deficiency anemia, unspecified Retic Panel Count Today E61.1 - Iron deficiency Calprotectin, Stool Today E61.1 - Iron deficiency, K52.9 - Noninfective gastroenteritis and colitis, unspecified Pancreatic Elastase, Fecal Today E61.1 - Iron deficiency, K52.9 - Noninfective gastroenteritis and colitis, unspecified OVA+PARA w/Giardia EIA [id number] Today E61.1 - Iron deficiency, K52.9 - Noninfective gastroenteritis and colitis, unspecified Stool Occult Blood iFOB Today E61.1 - Iron deficiency, K52.9 - Noninfective gastroenteritis and colitis, unspecified Fecal Fat, Qualitative Today E61.1 - Iron deficiency, K52.9 - Noninfective gastroenteritis and colitis, unspecified ENTERIC PATHOGEN PANEL STOOL Today E61.1 - Iron deficiency, K52.9 - Noninfective gastroenteritis and colitis, unspecified, K58.9 - Irritable bowel syndrome, unspecified, R19.7 - Diarrhea, unspecified Stool Lactoferrin/WBC Today E61.1 - Iron deficiency, K52.9 - Noninfective gastroenteritis and colitis, unspecified, K58.9 - Irritable bowel syndrome, unspecified CDIFF (PCR) Today E61.1 - Iron deficiency, K52.9 - Noninfective gastroenteritis and colitis, unspecified
--- NOTE | 2024-08-01 12:57 | OP.EGD_ITS ---
Patient Name: Ayla Abreu Procedure Date: 08/01/2024 12:17 PM Date of : 1950 Age: 74 Procedure: Upper GI endoscopy Indications: Epigastric abdominal pain, Iron deficiency anemia Providers: Fabien Valentin DO Referring MD: Sonia Álvarez Medicines: Monitored Anesthesia Care Patient Profile: This is a 74 year old female. Refer to note in patient chart for documentation of history and physical. Patient has symptoms of chronic abdominal cramping, acute right upper quadrant abdominal pain, chronic dyspepsia and acute nausea. Complications: No immediate complications. Procedure: Pre-Anesthesia Assessment: - Prior to the procedure, a History and Physical was performed, and patient medications and allergies were reviewed. The patient is competent. The risks and benefits of the procedure and the sedation options and risks were discussed with the patient. All questions were answered and informed consent was obtained. Patient identification and proposed procedure were verified by the physician in the pre-procedure area. Mental Status Examination: alert and oriented. Airway Examination: normal oropharyngeal airway and neck mobility. Respiratory Examination: clear to auscultation. CV Examination: normal. ASA Grade Assessment: II - A patient with mild systemic disease. After reviewing the risks and benefits, the patient was deemed in satisfactory condition to undergo the procedure. The anesthesia plan was to use monitored anesthesia care (MAC). Immediately prior to administration of medications, the patient was re-assessed for adequacy to receive sedatives. The heart rate, respiratory rate, oxygen saturations, blood pressure, adequacy of pulmonary ventilation, and response to care were monitored throughout the procedure. The physical status of the patient was re-assessed after the procedure. After obtaining informed consent, the endoscope was passed under direct vision. Throughout the procedure, the patient's blood pressure, pulse, and oxygen saturations were monitored continuously. The pediatric colonoscope was introduced through the mouth, and advanced to the jejunum. The upper GI endoscopy was accomplished without difficulty. The patient tolerated the procedure well. Scope In: 12:18:08 PM Scope Out: 12:22:04 PM Total Procedure Duration Time 0 hours 3 minutes 56 seconds Findings: The examined esophagus was normal. Patchy mildly erythematous mucosa without bleeding was found in the gastric body. This was biopsied with a cold forceps for histology. Biopsies were taken with a cold forceps for Helicobacter pylori testing. Verification of patient identification for the specimen was done. Estimated blood loss was minimal. Patchy mildly erythematous mucosa without active bleeding and with no stigmata of bleeding was found in the first portion of the duodenum and in the third portion of the duodenum. Biopsies were taken with a cold forceps for histology. Verification of patient identification for the specimen was done. Estimated blood loss was minimal. Impression: - Normal esophagus. - Erythematous mucosa in the gastric body. Biopsied. - Erythematous duodenopathy. Biopsied. Recommendation: - Discharge patient to home. - Resume previous diet. - Continue present medications. - Await pathology results. Procedure Code(s): --- Professional --- 50340, Esophagogastroduodenoscopy, flexible, transoral; with biopsy, single or multiple CPT copyright 2021 [employer]. All rights reserved. The codes documented in this report are preliminary and upon wood cut engraver review may be revised to meet current compliance requirements. Fabien Valentin DO 08/01/2024 12:57:00 PM This report has been signed electronically. Number of Addenda: 0 Note Initiated On: 08/01/2024 12:17 PM
--- NOTE | 2024-08-01 12:57 | OP.CCLET_ITS ---
08/01/2024 Sonia Álvarez [place] [facility] [id number] [address] Re : Upper GI endoscopy procedure for Ayla Abreu Dear Dr. Álvarez This procedure was performed on Thursday, August 01, 2024. My impressions and recommendations are as follows: Impressions : - Normal esophagus. - Erythematous mucosa in the gastric body. Biopsied. - Erythematous duodenopathy. Biopsied. Recommendations : - Discharge patient to home. - Resume previous diet. - Continue present medications. - Await pathology results. My findings are described in the full procedure note, which is enclosed. If I can be of further assistance, please feel free to contact me at . Sincerely, Fabien Valentin, 08/01/2024 12:57:00 PM This report has been signed electronically.
--- NOTE | 2024-08-01 12:58 | PCM.POST.ANE ---
Anesthesia: Postop Eval I Current Vital Signs Temperature: 97.7 F Pulse Rate: 101 Blood Pressure: 115/66 Respiratory Rate: 20 Pulse Ox: 94 Oxygen Delivery Method: Room Air Assessment Airway patent: Yes Spontaneous unlabored respirations: Yes Mental status: Awake nausea: No Vomiting: No Anesthesia Complication: No Fluid Hydration Crystalloid volume administer (ml): 500 Total IV fluid infused: 500 Progress Note Anesthesia document: Postop Eval 1 completed: Yes
--- NOTE | 2024-08-01 13:02 | OP.CCLET_ITS ---
08/01/2024 Sonia Álvarez [place] [facility] [id number] [address] Re : Colonoscopy procedure for Ayla Abreu Dear Dr. Álvarez This procedure was performed on Thursday, August 01, 2024. My impressions and recommendations are as follows: Impressions : - Preparation of the colon was fair. - Diverticulosis in the recto-sigmoid colon, in the sigmoid colon, in the descending colon and at the splenic flexure. - Localized moderate inflammation was found in the sigmoid colon secondary to colitis. Biopsied. Injected. - One 4 mm polyp in the sigmoid colon, removed with a jumbo cold forceps. Resected and retrieved. - Congested mucosa in the entire examined colon. Biopsied. - The examined portion of the ileum was normal. Biopsied. Recommendations : - Discharge patient to home. - Resume previous diet. - Continue present medications. - Await pathology results. - Repeat colonoscopy in 5 years for surveillance. My findings are described in the full procedure note, which is enclosed. If I can be of further assistance, please feel free to contact me at . Sincerely, Fabien Valentin, 08/01/2024 1:02:09 PM This report has been signed electronically.
--- NOTE | 2024-08-01 13:02 | OP.COLON_ITS ---
Patient Name: Ayla Abreu Procedure Date: 08/01/2024 12:22 PM Date of : 1950 Age: 74 Procedure: Colonoscopy Indications: Chronic diarrhea, Clinically significant diarrhea of unexplained origin, Iron deficiency anemia Providers: Fabien Valentin DO Referring MD: Sonia Álvarez Medicines: Monitored Anesthesia Care Patient Profile: This is a 74 year old female. Refer to note in patient chart for documentation of history and physical. Patient has symptoms of chronic abdominal cramping, acute right upper quadrant abdominal pain, chronic dyspepsia and acute nausea. Last Colonoscopy: within the past 3 years. Complications: No immediate complications. Procedure: Pre-Anesthesia Assessment: - Prior to the procedure, a History and Physical was performed, and patient medications and allergies were reviewed. The patient is competent. The risks and benefits of the procedure and the sedation options and risks were discussed with the patient. All questions were answered and informed consent was obtained. Patient identification and proposed procedure were verified by the physician in the pre-procedure area. Mental Status Examination: alert and oriented. Airway Examination: normal oropharyngeal airway and neck mobility. Respiratory Examination: clear to auscultation. CV Examination: normal. ASA Grade Assessment: II - A patient with mild systemic disease. After reviewing the risks and benefits, the patient was deemed in satisfactory condition to undergo the procedure. The anesthesia plan was to use monitored anesthesia care (MAC). Immediately prior to administration of medications, the patient was re-assessed for adequacy to receive sedatives. The heart rate, respiratory rate, oxygen saturations, blood pressure, adequacy of pulmonary ventilation, and response to care were monitored throughout the procedure. The physical status of the patient was re-assessed after the procedure. After I obtained informed consent, the scope was passed under direct vision. Throughout the procedure, the patient's blood pressure, pulse, and oxygen saturations were monitored continuously. The pediatric colonoscope was introduced through the anus and advanced to the terminal ileum. The colonoscopy was performed without difficulty. The patient tolerated the procedure well. The quality of the bowel preparation was fair. Scope In: 12:24:45 PM Scope Withdrawal Time 0 hours 16 minutes 39 seconds Scope Out: 12:46:29 PM Total Procedure Duration Time 0 hours 21 minutes 44 seconds Findings: The perianal and digital rectal examinations were normal. Multiple small and large-mouthed diverticula were found in the recto-sigmoid colon, sigmoid colon, descending colon and splenic flexure. Localized moderate inflammation characterized by congestion (edema), erosions and erythema was found in the sigmoid colon. Biopsies were taken with a cold forceps for histology. Verification of patient identification for the specimen was done. Area was successfully injected with 5 mL Casie ink for tattooing. Estimated blood loss was minimal. A 4 mm polyp was found in the sigmoid colon. The polyp was sessile. The polyp was removed with a jumbo cold forceps. Resection and retrieval were complete. An area of mildly congested mucosa was found in the entire colon. Biopsies for histology were taken with a cold forceps for evaluation of microscopic colitis. Verification of patient identification for the specimen was done. Estimated blood loss was minimal. The terminal ileum appeared normal. Biopsies were taken with a cold forceps for histology. Verification of patient identification for the specimen was done. Estimated blood loss was minimal. A single medium-sized localized angiodysplastic lesion with bleeding was found in the cecum. Coagulation for hemostasis using heater probe was successful. Estimated blood loss was minimal. Impression: - Preparation of the colon was fair. - Diverticulosis in the recto-sigmoid colon, in the sigmoid colon, in the descending colon and at the splenic flexure. - Localized moderate inflammation was found in the sigmoid colon secondary to colitis. Biopsied. Injected. - One 4 mm polyp in the sigmoid colon, removed with a jumbo cold forceps. Resected and retrieved. - Congested mucosa in the entire examined colon. Biopsied. - The examined portion of the ileum was normal. Biopsied. Recommendation: - Discharge patient to home. - Resume previous diet. - Continue present medications. - Await pathology results. - Repeat colonoscopy in 5 years for surveillance. Procedure Code(s): --- Professional --- 18275, 59, Colonoscopy, flexible; with control of bleeding, any method 17093, Colonoscopy, flexible; with biopsy, single or multiple 93252, 59, Colonoscopy, flexible; with directed submucosal injection(s), any substance CPT copyright 2021 [employer]. All rights reserved. The codes documented in this report are preliminary and upon controller coal or ore review may be revised to meet current compliance requirements. Fabien Valentin DO 08/01/2024 1:02:09 PM This report has been signed electronically. Number of Addenda: 0 Note Initiated On: 08/01/2024 12:22 PM
--- NOTE | 2024-08-01 13:07 | POSTOPAN2_ITS ---
Anesthesia Postop Eval I Sum Postop Eval Completion status Anesthesia document: Postop Eval 1 completed: Yes Anesthesia Postop Eval I Summary Anesthesia Postop Eval I Summary: Anesthesia Postop Eval I: Assessment Summary Airway patent Yes 08/01/24 12:59 [email or web address] [email or web address] Spontaneous unlabored Yes 08/01/24 12:59 [email or web address] [email or web address] respirations Mental status Awake 08/01/24 12:59 [email or web address] [email or web address] nausea No 08/01/24 12:59 [email or web address] [email or web address] Vomiting No 08/01/24 12:59 [email or web address] [email or web address] Anesthesia Postop Eval I: Fluid Summary Crystalloid volume administer 500 08/01/24 12:59 [email or web address] [email or web address] (ml) Colloids volume administered ( ml) Blood Product volume administered (ml) Total IV fluid infused 500 08/01/24 12:59 [email or web address] [email or web address] Anesthesia Postop Eval I: Summary Notes Anesthesia Complication No 08/01/24 12:59 [email or web address] [email or web address] Anesthesia Complication Comment: Post-operative progress note Anesthesia: Postop Eval II Evaluation Mental status: Awake Pain Level: 0 nausea: No Vomiting: No Complications Anesthesia Complication: No
--- NOTE | 2024-08-01 13:07 | PCM.POSTANE2 ---
Anesthesia Postop Eval I Sum Postop Eval Completion status Anesthesia document: Postop Eval 1 completed: Yes Anesthesia Postop Eval I Summary Anesthesia Postop Eval I Summary: Anesthesia Postop Eval I: Assessment Summary Airway patent Yes 08/01/24 12:59 ALUMINUM SIDING [email or web address] Spontaneous unlabored Yes 08/01/24 12:59 ALUMINUM SIDING [email or web address] respirations Mental status Awake 08/01/24 12:59 ALUMINUM SIDING [email or web address] nausea No 08/01/24 12:59 ALUMINUM SIDING [email or web address] Vomiting No 08/01/24 12:59 ALUMINUM SIDING [email or web address] Anesthesia Postop Eval I: Fluid Summary Crystalloid volume administer 500 08/01/24 12:59 ALUMINUM SIDING [email or web address] (ml) Colloids volume administered ( ml) Blood Product volume administered (ml) Total IV fluid infused 500 08/01/24 12:59 ALUMINUM SIDING [email or web address] Anesthesia Postop Eval I: Summary Notes Anesthesia Complication No 08/01/24 12:59 ALUMINUM SIDING [email or web address] Anesthesia Complication Comment: Post-operative progress note Anesthesia: Postop Eval II Evaluation Mental status: Awake Pain Level: 0 nausea: No Vomiting: No Complications Anesthesia Complication: No
== END 2024-08-01 13:38 | disposition home or self-care (01) ==
LOC: EN 10:20 → AC 10:28
PROVIDERS: PCP Family Medicine; Referring Provider Family Medicine; Visit Provider Internal Medicine Gastroenterology
PROC: 0DJD8ZZ Inspection of Lower Intestinal Tract, Via Natural or Artificial Opening Endoscopic (ICD-10-PCS; CPT 45378; principal; 2024-08-01 11:25)
DX: K31.A0 Gastric intestinal metaplasia, unspecified (principal); J43.9 Emphysema, unspecified; E11.9 Type 2 diabetes mellitus without complications; K52.9 Noninfective gastroenteritis and colitis, unspecified; F17.210 Nicotine dependence, cigarettes, uncomplicated; Z79.02 Long term (current) use of antithrombotics/antiplatelets; K57.50 Diverticulosis of both small and large intestine without perforation or abscess without bleeding; Z79.84 Long term (current) use of oral hypoglycemic drugs; I10 Essential (primary) hypertension; E78.00 Pure hypercholesterolemia, unspecified; D50.9 Iron deficiency anemia, unspecified; R19.5 Other fecal abnormalities; Z79.82 Long term (current) use of aspirin; K86.81 Exocrine pancreatic insufficiency; K55.21 Angiodysplasia of colon with hemorrhage; D12.5 Benign neoplasm of sigmoid colon; Z79.899 Other long term (current) drug therapy
CPT/HCPCS: 45381; 45380; 45382; 43239; 82962; 88305; C1889; A4648; J2405

== ENCOUNTER 2024-10-11 09:56 | Outpatient (RCR) | payer MEDICARE, SELFPAY | END 2024-10-30 23:59 | LOC: NS 09:56 | PROVIDERS: PCP Family Medicine; Referring Provider Internal Medicine Gastroenterology; Visit Provider Internal Medicine Gastroenterology | DX: Z71.3 Dietary counseling and surveillance (principal); E11.9 Type 2 diabetes mellitus without complications | CPT/HCPCS: 97803 ==

== ENCOUNTER → 2024-11-22 | Outpatient (CLI) | payer MEDICARE, SELFPAY ==
--- NOTE | 2024-11-22 12:42 | CT_ITS ---
PROCEDURE: LOW DOSE CT LUNG SCREENING 11/22/2024 REASON FOR EXAM: LUNG CANCER SCREENING Current smoker. Patient has smoked 1 pack per day for 58 years. History of COPD and emphysema. TECHNIQUE: Procedure Code: CTLUNGSCREEN Modality: CT Procedure: LOW DOSE CT LUNG SCREENING Coronal and Sagittal reconstruction series were provided. One or more dose reduction techniques were used (e.g., Automated exposure control, adjustment of the mA and/or kV according to patient size, use of iterative reconstruction technique). REFERENCE LINK: [employer] Lung-RADS RADIATION DOSE SUMMARY: CTDlvol: 3.18 mGy DLP: 104.03 mGycm COMPARISON: Prior study dated October 20, 2023. FINDINGS: PULMONARY NODULES: (Only nodules >3mm are reported) Nodules described below are on series 1 unless otherwise specified. Pulmonary Nodules: No suspicious pulmonary nodules are seen. Hardware:None Lymph Nodes:No significant lymph nodes are present. Heart and Vasculature:The heart is nonenlarged.Atherosclerotic calcifications of the thoracic aorta. Thoracic aorta and pulmonary arteries have normal contours; noncontrast technique limits evaluation. Coronary Artery Calcifications: Present Lungs and Airways: Mild emphysematous changes are present. Pleura:No pleural effusion. Upper Abdomen:Unremarkable Bones:Degenerative changes of the thoracic spine. CT/Low Dose CT Lung Screening IMPRESSION: Stable examination. No suspicious nodules are seen. Coronary artery calcification (CAC) is is present Lung-RADS Category: 2 BENIGN (BASED ON IMAGING FEATURES OR INDOLENT BEHAVIOR). RECOMMEND 12-MONTH SCREENING LDCT. Other Significant Findings: Reading Location: [facility]
== END | disposition home or self-care (01) ==
LOC: CT 12:34
PROVIDERS: PCP Family Medicine; Referring Provider Nurse Practitioner Family; Visit Provider Nurse Practitioner Family
DX: Z12.2 Encounter for screening for malignant neoplasm of respiratory organs (principal); Z87.891 Personal history of nicotine dependence; D50.9 Iron deficiency anemia, unspecified
CPT/HCPCS: 36415; 71271; 80053; 82607; 82728; 83540; 83550; 83615; 85025; 85652; 86140